=== PATIENT | female | born 1945 | race Caucasian/White ===

== ENCOUNTER → 2017-04-13 13:54 | Outpatient (CLI) | payer MEDICARE, SELFPAY | PROVIDERS: Family Provider Family Medicine Geriatric Medicine; PCP Family Medicine Geriatric Medicine; Visit Provider Family Medicine Geriatric Medicine | DX: N39.0 Urinary tract infection, site not specified (principal) | CPT/HCPCS: 87086; 87088; 87186 ==

== ENCOUNTER → 2017-08-22 10:01 | Outpatient (CLI) | payer MEDICARE, SELFPAY ==
[2017-08-22 13:31] LABS: Absolute Lymphocyte Count 1.89 X10^3/ul (0.83-4.51); Absolute Neutrophil Count 3.7 X10^3/uL (2.0-7.7); Basophil# 0.01 X10^3/uL; Basophil% 0.2 % (0-1); Eosinophil# 0.08 X10^3/uL; Eosinophils% 1.3 % (0-5); Hematocrit 39.4 % (37-47); Hemoglobin 12.7 g/dl (12.0-15.0); Lymphocyte # 1.89 X10^3/ul (4.0); Lymphocyte % 31.3 % (19-41); Mean Corp Hgb Conc 32.2 g/gl (32-36); Mean Corpuscular Hgb 28.7 pg (27.0-32.0); Mean Corpuscular Volume 89.1 fL (81-99); Mean Platelet Vol. 9.9 fl (6.2-12.0); Monocyte% 6.6 % (0-10); Neutrophil # 3.66 X10^3/uL (2.7-7.7); Neutrophil % 60.6 % (47-70); Platelet Count 253 K/mm3 (150-450); RBC Distribution Width CV 13.9 % (11.6-14.6); RBC Distribution Width SD 44.5 fl (35.1-43.9); Red Blood Count 4.42 M/mm3 (4.2-5.4)
[2017-08-22 13:32] LABS: POSITIVE COUNT NO; POSITIVE DIFFERENTIAL NO; POSITIVE MORPHOLOGY NO
[2017-08-22 13:50] LABS: AST(SGOT) 20 U/L (15-37); Alanine Aminotransfer ALT/SGPT 21 U/L (13-56); Albumin, Serum 3.6 g/dL (3.2-5.0); Alkaline Phosphatase 129 U/L (45-117); Anion Gap 8 (5-15); BUN 10 mg/dL (7-18); BUN/Creat Ratio 13.2 RATIO (10-20); Calcium,Total 8.8 mg/dL (8.5-10.1); Chloride 104 mmol/L (98-107); Creatinine, Serum 0.76 mg/dL (0.55-1.02); EST Glomerular Filtration Rate 79 mL/min (>60); Est Glom Filt Rate - Afr Amer 96 mL/min (>60); Globulin 3.5 g/dL (2.2-4.2); Glucose 85 mg/dL (74-106); Potassium 4.2 mmol/L (3.5-5.1); Protein, Total 7.1 g/dL (6.4-8.2); Sodium Level 139 mmol/L (136-145); Thyroid Stim Hormone (TSH) 1.98 uIU/mL (0.358-3.74)
[2017-08-23 09:37] LABS: Vitamin D,25 Hydroxy 14.6 ng/mL (29.95-100.01)
== END ==
PROVIDERS: Family Provider Family Medicine Geriatric Medicine; PCP Family Medicine Geriatric Medicine; Visit Provider Family Medicine Geriatric Medicine
DX: E55.9 Vitamin D deficiency, unspecified (principal); R53.83 Other fatigue
CPT/HCPCS: 36415; 80053; 82306; 84443; 85025

== ENCOUNTER → 2018-03-15 11:02 | Outpatient (CLI) | payer MEDICARE, SELFPAY | PROVIDERS: Family Provider Family Medicine Geriatric Medicine; PCP Family Medicine Geriatric Medicine; Visit Provider Family Medicine Geriatric Medicine | DX: N39.0 Urinary tract infection, site not specified (principal) | CPT/HCPCS: 87086; 87088; 87186 ==

== ENCOUNTER → 2018-05-07 15:55 | Outpatient (CLI) | payer MEDICARE, SELFPAY ==
--- NOTE | 2018-05-07 16:05 | RAD_ITS ---
STUDY: X-RAY - LUMBAR SPINE REASON FOR EXAM: Female, 72 years old. lower back and knee pain TECHNIQUE: 3 view(s) of the lumbar spine were obtained. COMPARISON: None FINDINGS: Normal lumbar lordosis. There is no substantial scoliosis. There is a normal alignment of the vertebrae. There is diffuse demineralization with multi-level endplate spondylosis. Normal disc space heights. There is atherosclerotic calcification of the abdominal aorta without a demonstrated aneurysm. RAD/Lumbar Spine 2 or 3 Views IMPRESSION: Degenerative changes of the spine, as detailed above. Electronically Signed: Robert Avelar, at 13:21 EDT Tel , Service support ,
--- NOTE | 2018-05-07 16:10 | RAD_ITS ---
STUDY: X-RAY - RIGHT KNEE REASON FOR EXAM: Female, 72 years old. Knee pain TECHNIQUE: 4 view(s) of the knee. COMPARISON: None. FINDINGS: Normal visualized distal femur. Normal visualized proximal tibia and fibula. Normal proximal tibiofibular articulation. Normal medial femorotibial compartment. Normal lateral femorotibial compartment. Normal patellofemoral articulation. There is a moderate volume joint effusion. The soft tissue structures are unremarkable. RAD/Knee 4 or More Views IMPRESSION: Effusion, as described above. Electronically Signed: Robert Avelar, at 12:41 EDT Tel , Service support ,
== END ==
PROVIDERS: Family Provider Family Medicine Geriatric Medicine; PCP Family Medicine Geriatric Medicine; Referring Provider Family Medicine Geriatric Medicine; Visit Provider Family Medicine Geriatric Medicine
DX: M54.5 Low back pain (principal); M25.569 Pain in unspecified knee
CPT/HCPCS: 72100; 73564

== ENCOUNTER → 2018-06-15 | Outpatient (CLI) | payer MEDICARE, SELFPAY ==
[2018-05-30 14:00] VITALS: BMI 25.0
--- NOTE | 2018-06-15 12:22 | MRI_ITS ---
STUDY: MRI RIGHT KNEE REASON FOR EXAM: Female, 72 years old. Knee pain TECHNIQUE: Standardized fat and water weighted pulse sequences were obtained in all 3 orthogonal planes. COMPARISON: None. FINDINGS: There is irregularity of the posterior horn of the medial meniscus which extends to the articular surfaces. There is low signal abnormality possible meniscal fragment adjacent to the posterior horn, lateral to the posterior horn. There is mild flattening with mild increased signal within the anterior horn likely degenerative. There is medial joint space compartmental narrowing. There are articular and osteochondral defects within the medial femoral condyle. There are reticular defects within the medial tibial plateau. There is marrow edema with decreased T1 and increased T2 signal within the medial femoral condyle and medial tibial plateau. Normal medial collateral ligamentous complex (MCL). Normal distal semimembranosus, gracilis and semitendinosus tendons. There is irregularity, deformity with abnormal signal extending to the articular surface involving the posterior horn lateral meniscus. There is mild flattening with increased signal anterior horn lateral meniscus. There are smaller articular and osteochondral defects, subchondral geode within the lateral tibial plateau near the intercondylar notch adjacent to the attachment of the anterior cruciate ligament. There is Mild edema with increased T2 signal within the lateral tibial plateau. Normal proximal tibiofibular articulation. Normal lateral collateral (fibular) ligament. Normal popliteus tendon. Normal biceps femoris tendon. Normal anterior cruciate ligament (ACL). Normal posterior cruciate ligament (PCL). Normal congruent patellofemoral articulation. There is interventricular defect involving the lateral facet. There is also mild subchondral marrow edema with increased T2 signal.. Normal medial and lateral patellar retinaculum. Normal quadriceps tendon. Normal patellar tendon. Normal Hoffa's fat pad. There is a large fluid collection posterior medial to the knee measured 7 cm in superior-inferior diameter by 1 cm in AP diameter by 2.7 cm in mediolateral diameter. The fluid collection dissects into the upper calf. There is mild prepatellar subcutaneous edema MRI/Lower Ext Joint Only (Routine) IMPRESSION: Significant osteoarthrosis medial compartment knee with joint space narrowing articular and osteochondral defects medial femoral condyle . There is also articular defects within the medial tibial plateau. 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
== END | disposition home or self-care (01) ==
LOC: MRI 12:21
PROVIDERS: Family Provider Family Medicine Geriatric Medicine; PCP Family Medicine Geriatric Medicine; Referring Provider Orthopaedic Surgery; Visit Provider Orthopaedic Surgery
DX: M25.561 Pain in right knee (principal)
CPT/HCPCS: 73721

== ENCOUNTER → 2018-06-26 | Outpatient (CLI) | payer MEDICARE, SELFPAY ==
[2018-06-20 08:06] VITALS: BMI 25.0
--- NOTE | 2018-06-26 16:28 | RAD_ITS ---
STUDY: X-RAY CHEST REASON FOR EXAM: Female, 72 years old. Cough TECHNIQUE: PA and lateral chest COMPARISON: 11/10/2016. FINDINGS: Moderate sliding hiatal hernia. Containing a portion of the gastric fundus. The lungs are clear and expanded. Normal cardiomediastinal silhouette, chandrika and pleural margins. No acute osseous or upper abdominal process. Multilevel cervical spondylosis. Mild thoracolumbar scoliosis and spondylosis. RAD/Chest PA and Lateral IMPRESSION: No acute cardiopulmonary process. Sliding hiatal hernia. Electronically Signed: Jose Dave MD at 10:58 EDT Tel , Service support ,
== END | disposition home or self-care (01) ==
LOC: RAD 16:22
PROVIDERS: Family Provider Family Medicine Geriatric Medicine; PCP Family Medicine Geriatric Medicine; Referring Provider Family Medicine Geriatric Medicine; Visit Provider Family Medicine Geriatric Medicine
DX: J41.0 Simple chronic bronchitis (principal)
CPT/HCPCS: 71046

== ENCOUNTER 2018-07-17 06:45 | Day surgery (SDC) | payer MEDICARE, SELFPAY ==
--- NOTE | 2018-06-20 03:45 | HP_ITS ---
Intake Vital Signs 06/20/18 Body Mass Index (BMI) 25.0 Intake Visit Reasons: right knee Is patient in pain?: Yes Pain scale (1-10): 4 Allergies No Known Allergies Allergy (Verified 05/19/15 11:19) Medications Citalopram [Celexa] 40 mg PO DAILY 05/19/15 [History Confirmed 05/19/15] PFSH Social History Smoking Status: Former smoker HPI right knee: Surgical H&P: Yes Details: Parts of this documentation were recorded by a scribe, this documentation accurately reflects the service provided and the decisions made by me, Edmundo Meyer, 06/20/18 0806. AJITH BERRIOS is a 72 year old F here today for right knee MRI f/u. She has been ill with pneumonia for almost 3 weeks so she has been resting and the knee pain resolved a little. She still complains of pain increasing with prolonged walking or in one position for too long. She has good rom today and mild swelling that is fairly consistent. Denies numbness, tingling or other associated symptoms. She uses otc nsaids prn. She has completed her antibiotics and her cough is less productive. Ortho Exam Right Knee Skin/Wound: No erythema, No ecchymosis, Yes swelling Homans Sign: No 1+: Effusion Knee ROM: Yes ROM-Extension -20 to 0, Yes ROM-Flexion 0-140 Examination: Yes Med jt line tenderness, Yes Pain with flexion, Yes Eri's Test Stability: NML: Anterior Drawer, NML: Posterior Drawer, NML: Valgus 30, NML: Varus 30 Supplemental Info 06/15/2018 MRI right knee: Complex tear posterior horn medial meniscus arthrosis present medial and patellofemoral compartments degeneration versus tear anterior and possible posterior horn lateral menisci Assessment & Plan Problems 1. Primary osteoarthritis of right knee M17.11 2. Acute medial meniscus tear of right knee, subsequent encounter S83.817D 3. Internal derangement of right knee involving posterior horn of lateral meniscus M23.351 Plan Personally reviewed MRI and explained that she has tear of the posterior medial meniscus and small posterior lateral meniscus with medial and PF Osteoarthritis more significant in PF. Her treatment options are do nothing, a knee arthroscopy for debridement and explained that due to the OA her recovery from the arthroscopy. If the scope fails and her pain continues or increases can discuss a TKA. Due to her recent pneumonia discussed prolonging surgery for another month. Reviewed the pre-operative plans with the patient. Risks and benefits of the procedure were fully explained, including but not limited to infection, neurovascular injury, continued pain, arthritis, stiffness, need for further surgery, re-injury, DVT, PE, general risks of anesthesia, and loss of limb or life. The patient understands all the risks and does wish to proceed with written consent. Follow up two weeks post op or sooner if pain, swelling, numbness or associated symptoms, or concerns develop. All questions answered. Patient in agreement of plan. Coding Level of Care Code Off vis,est,level 3 Diagnoses Primary osteoarthritis of right knee M17.11 ??Osteoarthritis type: primary Acute medial meniscus tear of right knee, subsequent encounter S83.241D ??Encounter type: subsequent encounter Internal derangement of right knee involving posterior horn of lateral meniscus M23.351 06/20/18 1545 <Electronically signed by Edmundo Meyer DO> Date Edmundo Meyer DO
[2018-06-20 08:06] VITALS: BMI 25.0
[2018-07-17] VITALS (9 sets, daily range): BP systolic 114–169; BP diastolic 58–97; PULSE 65–83; RESP 14–16; TEMP 35.9–36.4; O2SAT 93–99; BMI 24.7
--- NOTE | 2018-07-17 08:00 | PCM.HP.BLA ---
History and Physical Date of Admission: 07/17/18 Intake Vital Signs 06/20/18 Body Mass Index (BMI) 25.0 Intake Visit Reasons: right knee Is patient in pain?: Yes Pain scale (1-10): 4 Allergies No Known Allergies Allergy (Verified 05/19/15 11:19) Medications Citalopram [Celexa] 40 mg PO DAILY 05/19/15 [History Confirmed 05/19/15] PFSH Social History Smoking Status: Former smoker HPI right knee: Surgical H&P: Yes Details: Parts of this documentation were recorded by a scribe, this documentation accurately reflects the service provided and the decisions made by me, Edmundo Meyer, 06/20/18 0806. AJITH BERRIOS is a 72 year old F here today for right knee MRI f/u. She has been ill with pneumonia for almost 3 weeks so she has been resting and the knee pain resolved a little. She still complains of pain increasing with prolonged walking or in one position for too long. She has good rom today and mild swelling that is fairly consistent. Denies numbness, tingling or other associated symptoms. She uses otc nsaids prn. She has completed her antibiotics and her cough is less productive. Ortho Exam Right Knee Skin/Wound: No erythema, No ecchymosis, Yes swelling Homans Sign: No 1+: Effusion Knee ROM: Yes ROM-Extension -20 to 0, Yes ROM-Flexion 0-140 Examination: Yes Med jt line tenderness, Yes Pain with flexion, Yes Eri's Test Stability: NML: Anterior Drawer, NML: Posterior Drawer, NML: Valgus 30, NML: Varus 30 Supplemental Info 06/15/2018 MRI right knee: Complex tear posterior horn medial meniscus arthrosis present medial and patellofemoral compartments degeneration versus tear anterior and possible posterior horn lateral menisci Assessment & Plan Problems 1. Primary osteoarthritis of right knee M17.11 2. Acute medial meniscus tear of right knee, subsequent encounter S83.775D 3. Internal derangement of right knee involving posterior horn of lateral meniscus M23.351 Plan Personally reviewed MRI and explained that she has tear of the posterior medial meniscus and small posterior lateral meniscus with medial and PF Osteoarthritis more significant in PF. Her treatment options are do nothing, a knee arthroscopy for debridement and explained that due to the OA her recovery from the arthroscopy. If the scope fails and her pain continues or increases can discuss a TKA. Due to her recent pneumonia discussed prolonging surgery for another month. Reviewed the pre-operative plans with the patient. Risks and benefits of the procedure were fully explained, including but not limited to infection, neurovascular injury, continued pain, arthritis, stiffness, need for further surgery, re-injury, DVT, PE, general risks of anesthesia, and loss of limb or life. The patient understands all the risks and does wish to proceed with written consent. Follow up two weeks post op or sooner if pain, swelling, numbness or associated symptoms, or concerns develop. All questions answered. Patient in agreement of plan. Coding Level of Care Code Off vis,est,level 3 Diagnoses Primary osteoarthritis of right knee M17.11 ??Osteoarthritis type: primary Acute medial meniscus tear of right knee, subsequent encounter S83.241D ??Encounter type: subsequent encounter Internal derangement of right knee involving posterior horn of lateral meniscus M23.351 06/20/18 2765 <Electronically signed by Edmundo Meyer DO> Date Edmundo Meyer DO I have re-examined the patient. There are no clinical changes since date of exam
[2018-07-17] MEDS: Cefazolin 2 GM in 0.9% Normal Saline 100 ML IV (08:49)
[2018-07-17] MEDS: Epinephrine (1 mg/ml) 1 MG/ML VIAL (09:13)
[2018-07-17] MEDS: Bupiv/Epi 0.5% Mpf 30 ML Vial (09:13)
[2018-07-17] MEDS: Bupivacaine 0.5% PF 10 ML VIAL (09:35)
[2018-07-17] MEDS: MethylPREDNISolone Acetate 80 MG/ML Vial (09:35)
[2018-07-17] MEDS: Morphine 4 MG/ML Syringe (09:35)
--- NOTE | 2018-07-17 09:57 | DCINST_ITS ---
Additional Instructions: Ice and elevate next 72 hours .keep dressing on clean and dry for 48 hours then may remove begin showering daily but do not submerge in tub or pool. After shower may apply Band-Aids . Encourage knee range of motion weightbearing as tolerated, use crutches until confident in knee then may discontinue. No strenuous activity. When not ambulating keep iced and elevated next 72 hours Allergies/Adverse Reactions: Allergies No Known Allergies Allergy (Verified 07/10/18 09:48) Medications to take at Discharge Citalopram [Celexa] 40 mg PO DAILY 05/19/15 Ergocalciferol [Vitamin D] 50,000 unit PO Q7D 07/10/18 Hydrocodone Bitart/Apap 5-325 [Sterling 5MG-325MG] 1 - 2 tablet PO Q4H PRN PRN 5 Days #30 tablet 07/17/18 The following prescriptions were given: Hydrocodone Bitart/Apap 5-325 [Sterling 5MG-325MG] 1 - 2 tablet PO Q4H PRN PRN 5 Days #30 tablet PRN Reason: Pain Primary Care Physician: David Winters Chi, MD [Primary Care Provider] - Test Results: Test results from this visit will be discussed in further detail at your follow- up appointment, if applicable. Please Follow Up With: Edmundo Meyer DO - 2 wk
--- NOTE | 2018-07-17 10:01 | OP.PCM_ITS ---
Report of Operation Date of Procedure: 07/17/18 Description of Surgical Findings:: Preop diagnosis:right knee medial and lateral meniscal tear, djd Postoperative diagnosis: right knee grade III medial lateral and patellofemoral compartment chondromalacia, complex tearing medial and lateral meniscus. Procedure: Left knee arthroscopic partial medial and lateral menisectomy, tricompartmental chondroplasty Anesthesia: General Estimated blood loss: 7 mL Tourniquet time: 24 minutes 300 mmHg Complications: none Indication for procedure: This is a 73-year-old female patient with mechanical knee pain MRI evidence of DJD and medial and lateral meniscal tears the patient did wish to proceed with an elective arthroscopic surgery to attempt to alleviate the symptoms. Risk benefits and alternatives of the procedure were reviewed including risk of bleeding infection nerve artery tissue damage need for further surgery continued pain and expected postoperative course. Procedure: The patient was met in the preoperative holding area. The operative extremity was identified by both patient and physician and family and marked. Patient was brought back to the operating room on a wheeled cart and transferred to the operating table in the supine position. Anesthesia was started. A well- padded tourniquet was placed on the operative extremity. A lower extremity leg gamez was secured to the operative extremity. The contralateral extremity was well-padded and the end of the bed was flexed to 90 degrees. The patient was prepped and draped in the usual sterile fashion. A timeout was called to ensure the proper patient, procedure, and extremity were being contemplated. 0.5% Marcaine with epinephrine was injected into the planned incisional areas under the skin only. An Esmarch was used to exsanguinate the extremity and the tourniquet was inflated. An 11 blade scalpel was used to make a stab incision i n the anterior lateral portal. The arthroscope was inserted into the intercondylar notch and inflow and outflow tubes were attached. Arthroscopic visualization began. The medial compartment was entered. An 18-gauge spinal needle was used to establish the placement for anterior medial portal. An 11 blade scalpel was used to make a stab incision. Blunt probe was inserted followed by a meniscal probe. Complex tearing of the posterior horn and body medial meniscus the use of arthroscopic biting instruments and corby partial medial meniscectomy was performed. There was noted to be grade III chondromalacia of the medial and lateral femoral condyles and chondroplasty was performed the ACL was found to be intact. The lateral compartment was entered complex tearing posterior body lateral meniscus with the use of arthroscopic biting instruments and corby and ArthroCare wand a partial lateral meniscectomy was performed. The arthroscope was switched to the medial portal to complete the procedure. The medial and lateral gutters were inspected and were free of loose bodies. The patellofemoral joint was inspected grade III chondromalacia. There was good patellar tracking. The knee was thoroughly irrigated and drained. An intra-articular injection with 5 cc 0.5% Marcaine plain 4 mg of morphine and 40 mg of Depo-Medrol was injected intra-articularly. The arthroscope was removed the portals were closed with 3-0 nylon arthroscopic stitches. Followed by Xeroform 4 x 4's ABDs web roll and an Rodrigo wrap. The tourniquet was let down and the drapes were removed. All counts were correct. The patient was brought back to the PACU in stable condition.
== END 2018-07-17 12:04 | disposition home or self-care (01) ==
LOC: SDC 06:46 → AC 06:47
PROVIDERS: Family Provider Family Medicine Geriatric Medicine; PCP Family Medicine Geriatric Medicine; Referring Provider Orthopaedic Surgery; Visit Provider Orthopaedic Surgery
PROC: (CPT 29870; principal; 2018-07-17 08:30)
DX: S83.241A Other tear of medial meniscus, current injury, right knee, initial encounter (principal); S83.281A Other tear of lateral meniscus, current injury, right knee, initial encounter; X58.XXXA Exposure to other specified factors, initial encounter; Y93.9 Activity, unspecified; Y92.9 Unspecified place or not applicable; F41.9 Anxiety disorder, unspecified; F32.9 Major depressive disorder, single episode, unspecified; Z79.899 Other long term (current) drug therapy; Z87.891 Personal history of nicotine dependence; M17.11 Unilateral primary osteoarthritis, right knee
CPT/HCPCS: 01400; 29880; J7120; J2405

== ENCOUNTER → 2018-08-27 | Outpatient (CLI) | payer MEDICARE, SELFPAY ==
[2018-07-17 07:26] VITALS: BMI 24.7
[2018-08-27 12:24] LABS: Absolute Neutrophil Count 4.2 X10^3/uL (2.0-7.7); Basophil# 0.01 X10^3/uL; Basophil% 0.2 % (0-1); Eosinophil# 0.06 X10^3/uL; Eosinophils% 0.9 % (0-5); Hematocrit 40.2 % (37-47); Hemoglobin 12.8 g/dl (12.0-15.0); Lymphocyte % 27.4 % (19-41); Mean Corp Hgb Conc 31.8 g/gl (32-36); Mean Corpuscular Hgb 28.3 pg (27.0-32.0); Mean Corpuscular Volume 88.7 fL (81-99); Mean Platelet Vol. 9.4 fl (6.2-12.0); Monocyte# 0.51 X10^3/uL; Monocyte% 7.8 % (0-10); Neutrophil # 4.17 X10^3/uL (2.7-7.7); Neutrophil % 63.5 % (47-70); Platelet Count 274 K/mm3 (150-450); RBC Distribution Width CV 14.9 % (11.6-14.6); RBC Distribution Width SD 48.3 fl (35.1-43.9); Red Blood Count 4.53 M/mm3 (4.2-5.4); White Blood Count 6.6 K/mm3 (4.4-11.0)
[2018-08-27 12:34] LABS: POSITIVE COUNT NO; POSITIVE DIFFERENTIAL NO; POSITIVE MORPHOLOGY NO
[2018-08-27 12:47] LABS: Vitamin D,25 Hydroxy 36.8 ng/mL (29.95-100.01)
[2018-08-27 12:54] LABS: ALB/GLOB Ratio 1.1 RATIO (0.9-2.4); AST(SGOT) 16 U/L (15-37); Alanine Aminotransfer ALT/SGPT 22 U/L (13-56); Albumin, Serum 3.5 g/dL (3.2-5.0); Alkaline Phosphatase 106 U/L (45-117); Anion Gap 6 (5-15); BUN 14 mg/dL (7-18); BUN/Creat Ratio 16.6 RATIO (10-20); Calcium,Total 8.7 mg/dL (8.5-10.1); Chloride 107 mmol/L (98-107); Creatinine, Serum 0.84 mg/dL (0.55-1.02); EST Glomerular Filtration Rate 70 mL/min (>60); Est Glom Filt Rate - Afr Amer 85 mL/min (>60); Globulin 3.3 g/dL (2.2-4.2); Glucose 111 mg/dL (74-106); Potassium 4.2 mmol/L (3.5-5.1); Protein, Total 6.8 g/dL (6.4-8.2); Sodium Level 140 mmol/L (136-145); Thyroid Stim Hormone (TSH) 1.72 uIU/mL (0.358-3.74)
== END | disposition home or self-care (01) ==
LOC: POLAB3 11:34
PROVIDERS: Family Provider Family Medicine Geriatric Medicine; PCP Family Medicine Geriatric Medicine; Visit Provider Family Medicine Geriatric Medicine
DX: R53.83 Other fatigue (principal); E55.9 Vitamin D deficiency, unspecified
CPT/HCPCS: 36415; 80053; 82306; 84443; 85025

== ENCOUNTER → 2018-12-06 15:49 | Outpatient (CLI) | payer MEDICARE, SELFPAY ==
[2018-08-27 12:57] VITALS: BMI 24.7
== END ==
PROVIDERS: Family Provider Family Medicine Geriatric Medicine; PCP Family Medicine Geriatric Medicine; Referring Provider Family Medicine Geriatric Medicine; Visit Provider Family Medicine Geriatric Medicine
DX: R50.9 Fever, unspecified (principal)
CPT/HCPCS: 87633

== ENCOUNTER → 2019-08-29 10:49 | Outpatient (CLI) | payer MEDICARE, SELFPAY ==
[2018-08-27 12:57] VITALS: BMI 24.7
[2019-08-29 12:03] LABS: Absolute Lymphocyte Count 1.48 X10^3/uL (0.83-4.51); Absolute Neutrophil Count 2.5 X10^3/uL (2.0-7.7); Basophil# 0.01 X10^3/uL; Basophil% 0.2 % (0-1); Eosinophil# 0.08 X10^3/uL; Eosinophils% 1.8 % (0-5); Hematocrit 36.8 % (37-47); Hemoglobin 11.3 g/dL (12.0-15.0); Lymphocyte # 1.48 X10^3/ul (4.0); Mean Corp Hgb Conc 30.7 g/dL (32-36); Mean Corpuscular Volume 87.8 fL (81-99); Mean Platelet Vol. 9.3 fl (6.2-12.0); Monocyte# 0.45 X10^3/uL; NRBC Flagged by Analyzer 0 % (0-5); Neutrophil # 2.45 X10^3/uL (2.7-7.7); Neutrophil % 54.6 % (47-70); Platelet Count 240 K/mm3 (150-450); RBC Distribution Width CV 14.4 % (11.6-14.6); RBC Distribution Width SD 46.2 fl (35.1-43.9); Red Blood Count 4.19 M/mm3 (4.2-5.4); White Blood Count 4.5 K/mm3 (4.4-11.0)
[2019-08-29 12:24] LABS: AST(SGOT) 15 U/L (15-37); Alanine Aminotransfer ALT/SGPT 17 U/L (13-56); Albumin, Serum 3.3 g/dL (3.2-5.0); Alkaline Phosphatase 134 U/L (45-117); Anion Gap 5 (5-15); BUN 10 mg/dL (7-18); BUN/Creat Ratio 13.6 RATIO (10-20); Calcium,Total 8.7 mg/dL (8.5-10.1); Chloride 106 mmol/L (98-107); Creatinine, Serum 0.73 mg/dL (0.55-1.02); EST Glomerular Filtration Rate 82 mL/min (>60); Est Glom Filt Rate - Afr Amer 99 mL/min (>60); Globulin 3.3 g/dL (2.2-4.2); Glucose 93 mg/dL (74-106); Potassium 4.2 mmol/L (3.5-5.1); Protein, Total 6.6 g/dL (6.4-8.2); Sodium Level 140 mmol/L (136-145); Thyroid Stim Hormone (TSH) 1.62 uIU/mL (0.358-3.74)
[2019-08-29 12:54] LABS: Vitamin D,25 Hydroxy 52.6 ng/mL
== END ==
PROVIDERS: PCP Family Medicine Geriatric Medicine; Visit Provider Family Medicine Geriatric Medicine
DX: E55.9 Vitamin D deficiency, unspecified (principal); R53.83 Other fatigue
CPT/HCPCS: 36415; 80053; 82306; 84443; 85025

== ENCOUNTER 2020-05-15 13:56 | Outpatient (RCR) | payer MEDICARE, SELFPAY ==
[2018-08-27 12:57] VITALS: BMI 24.7
== END 2020-07-28 23:59 ==
LOC: IMMUN 13:56
PROVIDERS: PCP Family Medicine Geriatric Medicine; Visit Provider Family Medicine
DX: Z23 Encounter for immunization (principal)
CPT/HCPCS: 0001A; 0002A; 91300

== ENCOUNTER → 2020-06-10 11:48 | Outpatient (CLI) | payer MEDICARE, SELFPAY ==
[2018-08-27 12:57] VITALS: BMI 24.7
[2020-06-10 12:04] LABS: Absolute Lymphocyte Count 2.45 X10^3/uL (0.83-4.51); Absolute Neutrophil Count 3.5 X10^3/uL (2.0-7.7); Basophil# 0.03 X10^3/uL; Basophil% 0.4 % (0-1); Eosinophil# 0.19 X10^3/uL; Eosinophils% 2.8 % (0-5); Hematocrit 37.5 % (37-47); Hemoglobin 11.4 g/dL (12.0-15.0); Lymphocyte # 2.45 X10^3/ul (0.83-4.51); Lymphocyte % 36.2 % (19-41); Mean Corp Hgb Conc 30.4 g/dL (32-36); Mean Corpuscular Hgb 25.3 pg (27.0-32.0); Mean Corpuscular Volume 83.1 fL (81-99); Mean Platelet Vol. 8.6 fl (6.2-12.0); Monocyte# 0.59 X10^3/uL; Monocyte% 8.7 % (0-10); NRBC Flagged by Analyzer 0 % (0-5); Neutrophil # 3.49 X10^3/uL (2.7-7.7); Neutrophil % 51.8 % (47-70); Platelet Count 276 K/mm3 (150-450); RBC Distribution Width SD 45.4 fl (35.1-43.9); Red Blood Count 4.51 M/mm3 (4.2-5.4); White Blood Count 6.8 K/mm3 (4.4-11.0)
[2020-06-10 12:57] LABS: AST(SGOT) 17 U/L (15-37); Alanine Aminotransfer ALT/SGPT 20 U/L (13-56); Albumin, Serum 3.6 g/dL (3.2-5.0); Alkaline Phosphatase 150 U/L (45-117); Anion Gap 4 (5-15); BUN 14 mg/dL (7-18); BUN/Creat Ratio 18.3 RATIO (10-20); Calcium,Total 8.8 mg/dL (8.5-10.1); Chloride 104 mmol/L (98-107); Creatinine, Serum 0.76 mg/dL (0.55-1.02); EST Glomerular Filtration Rate 78 mL/min (>60); Est Glom Filt Rate - Afr Amer 94 mL/min (>60); Globulin 3.7 g/dL (2.2-4.2); Glucose 93 mg/dL (74-106); Protein, Total 7.3 g/dL (6.4-8.2); Sodium Level 138 mmol/L (136-145); Thyroid Stim Hormone (TSH) 2.36 uIU/mL (0.358-3.74)
--- NOTE | 2020-06-10 14:00 | RAD_ITS ---
STUDY: X-RAY CHEST REASON FOR EXAM: Female, 74 years old. [place] TECHNIQUE: Frontal and lateral views COMPARISON: 06/26/2018. FINDINGS: The lungs are clear and expanded. There is no demonstrated pleural abnormality. Normal size heart. Normal mediastinum and chandrika. Normal visualized pulmonary arteries. Normal visualized aortic arch and descending thoracic aorta. Normal visualized thoracic spine. Normal visualized ribs, clavicles, and shoulders. Hiatal hernia. RAD/Chest PA and Lateral IMPRESSION: No acute pulmonary pathology. Small hiatal hernia. Electronically Signed: Jose Samuel DO at 20:09 EDT Tel [phone], Service support ,
== END ==
PROVIDERS: PCP Family Medicine Geriatric Medicine; Referring Provider Family Medicine Geriatric Medicine; Visit Provider Family Medicine Geriatric Medicine
DX: R06.09 Other forms of dyspnea (principal); R53.83 Other fatigue
CPT/HCPCS: 36415; 71046; 80053; 84443; 85025

== ENCOUNTER → 2020-06-12 16:08 | Outpatient (CLI) | payer MEDICARE, SELFPAY ==
[2018-08-27 12:57] VITALS: BMI 24.7
== END ==
PROVIDERS: PCP Family Medicine Geriatric Medicine; Referring Provider Family Medicine Geriatric Medicine; Visit Provider Family Medicine Geriatric Medicine
DX: R06.89 Other abnormalities of breathing (principal)
CPT/HCPCS: 87635; C9803; U0002

== ENCOUNTER → 2020-08-04 12:40 | Outpatient (CLI) | payer MEDICARE, SELFPAY ==
[2020-07-29 13:48] VITALS: BMI 25.9
--- NOTE | 2020-08-04 12:47 | ECHOD_ITS ---
Version 2 Reason For Study: CHEST PAIN, ARRHYTHMIA Procedure This was a 2D Doppler, Color Flow transthoracic echocardiogram. Exam performed in department. Left Ventricle Normal LV size. Left ventricular systolic function is normal. The estimated ejection fraction is 60 %. Stage 1 diastolic dysfunction. No regional wall motion abnormalities noted. Right Ventricle Normal RV size. Normal systolic function. Atria Normal left atrium. Normal right atrium. Mitral Valve Normal mitral valve. Mild (1+) eccentric mitral valve insufficiency. Tricuspid Valve Normal tricuspid valve. Mild tricuspid valve insufficiency. Aortic Valve Trisinus/trileaflet aortic valve. Pulmonic Valve Normal pulmonic valve. Great Vessels Normal aortic root. Pericardium/Pleural No pericardial effusion. MMode/2D Measurements & Calculations LVIDd: 3.8 cm IVSd: 1.1 cm Ao root diam: 3.1 cm LVIDs: 2.5 cm LVPWd: 1.0 cm RVDd: 2.7 cm FS: 34.4 % LAV(MOD-bp): 54.1 ml LA A4 area: 16.9 cm2 LA dimension(2D): 3.3 cm LAV(MOD-bp) Indexed: 30.1 ml/m2 LAV(MOD-sp2): 47.1 ml LAV(MOD-sp4): 50.2 ml RA A4 area: 9.1 cm2 Time Measurements MV dec time: 0.16 sec Doppler Measurements & Calculations MV E max ezequiel: 64.6 cm/sec Lat Peak E' Ezequiel: 9.8 cm/sec Med Peak E' Ezequiel: 4.4 cm/sec MV A max ezequiel: 93.9 cm/sec E/E' lat: 6.6 E/E' med: 14.7 MV E/A: 0.69 Ao V2 max: 148.7 cm/sec LV V1 max: 119.8 cm/sec PA V2 max: 102.5 cm/sec Ao max P.8 mmHg LV V1 max P.7 mmHg TR max ezequiel: 236.5 cm/sec TR max P.4 mmHg ECHO/Echo Complete Interpretation Summary Normal LV size. Left ventricular systolic function is normal. The estimated ejection fraction is 60 %. Stage 1 diastolic dysfunction. Ordering Physician: Rainer Waggoner Referring Physician: David Winters Chi Performed By: Rashida Geronimo RDCS, RVT
== END ==
PROVIDERS: PCP Family Medicine Geriatric Medicine; Referring Provider Internal Medicine Cardiovascular Disease; Visit Provider Internal Medicine Cardiovascular Disease
DX: R07.9 Chest pain, unspecified (principal); R53.83 Other fatigue; R00.0 Tachycardia, unspecified
CPT/HCPCS: 93225; 93226; 93306

== ENCOUNTER → 2020-08-31 11:19 | Outpatient (CLI) | payer MEDICARE, SELFPAY ==
[2020-07-29 13:48] VITALS: BMI 25.9
[2020-08-31 12:15] LABS: Absolute Lymphocyte Count 2.16 X10^3/uL (0.83-4.51); Absolute Neutrophil Count 3.8 X10^3/uL (2.0-7.7); Basophil# 0.02 X10^3/uL; Basophil% 0.3 % (0-1); Eosinophil# 0.12 X10^3/uL; Eosinophils% 1.8 % (0-5); Lymphocyte # 2.16 X10^3/ul (0.83-4.51); Lymphocyte % 32.8 % (19-41); Mean Corp Hgb Conc 30.6 g/dL (32-36); Mean Corpuscular Volume 81.8 fL (81-99); Mean Platelet Vol. 9.1 fl (6.2-12.0); Monocyte# 0.49 X10^3/uL; Monocyte% 7.4 % (0-10); NRBC Flagged by Analyzer 0 % (0-5); Neutrophil # 3.78 X10^3/uL (2.7-7.7); Neutrophil % 57.4 % (47-70); Platelet Count 299 K/mm3 (150-450); RBC Distribution Width CV 15.7 % (11.6-14.6); RBC Distribution Width SD 46.5 fl (35.1-43.9); White Blood Count 6.6 K/mm3 (4.4-11.0)
[2020-08-31 12:36] LABS: AST(SGOT) 18 U/L (15-37); Alanine Aminotransfer ALT/SGPT 20 U/L (13-56); Albumin, Serum 3.5 g/dL (3.2-5.0); Alkaline Phosphatase 146 U/L (45-117); Anion Gap 7 (5-15); BUN 15 mg/dL (7-18); BUN/Creat Ratio 16.2 RATIO (10-20); Calcium,Total 8.8 mg/dL (8.5-10.1); Chloride 106 mmol/L (98-107); Creatinine, Serum 0.92 mg/dL (0.55-1.02); EST Glomerular Filtration Rate 63 mL/min (>60); Est Glom Filt Rate - Afr Amer 76 mL/min (>60); Globulin 3.6 g/dL (2.2-4.2); Glucose 143 mg/dL (74-106); Potassium 3.9 mmol/L (3.5-5.1); Protein, Total 7.1 g/dL (6.4-8.2); Sodium Level 140 mmol/L (136-145); Thyroid Stim Hormone (TSH) 2.83 uIU/mL (0.358-3.74)
[2020-08-31 15:41] LABS: Vitamin D,25 Hydroxy 33.5 ng/mL
[2020-08-31 17:30] LABS: Hemoglobin A1c 5.7 % (3.8-5.6)
== END ==
PROVIDERS: PCP Family Medicine Geriatric Medicine; Visit Provider Family Medicine Geriatric Medicine
DX: E55.9 Vitamin D deficiency, unspecified (principal); R53.83 Other fatigue; R79.9 Abnormal finding of blood chemistry, unspecified
CPT/HCPCS: 36415; 80053; 82306; 83036; 84443; 85025

== ENCOUNTER → 2020-12-15 15:57 | Outpatient (CLI) | payer MEDICARE, SELFPAY ==
[2020-12-15 17:12] LABS: Absolute Lymphocyte Count 1.88 X10^3/uL (0.83-4.51); Absolute Neutrophil Count 3.5 X10^3/uL (2.0-7.7); Basophil# 0.01 X10^3/uL; Basophil% 0.2 % (0-1); Eosinophil# 0.12 X10^3/uL; Hematocrit 33.3 % (37-47); Hemoglobin 10.1 g/dL (12.0-15.0); Lymphocyte # 1.88 X10^3/ul (0.83-4.51); Lymphocyte % 31.2 % (19-41); Mean Corp Hgb Conc 30.3 g/dL (32-36); Mean Corpuscular Hgb 24.6 pg (27.0-32.0); Mean Corpuscular Volume 81.2 fL (81-99); Mean Platelet Vol. 8.9 fl (6.2-12.0); Monocyte# 0.47 X10^3/uL; Monocyte% 7.8 % (0-10); NRBC Flagged by Analyzer 0 % (0-5); Neutrophil # 3.53 X10^3/uL (2.7-7.7); Neutrophil % 58.6 % (47-70); Platelet Count 263 K/mm3 (150-450); RBC Distribution Width CV 16.4 % (11.6-14.6); RBC Distribution Width SD 48.5 fl (35.1-43.9)
[2020-12-15 17:24] LABS: Anion Gap 6 (5-15); BUN 12 mg/dL (7-18); BUN/Creat Ratio 14.3 RATIO (10-20); Calcium,Total 8.9 mg/dL (8.5-10.1); Chloride 104 mmol/L (98-107); Creatinine, Serum 0.84 mg/dL (0.55-1.02); EST Glomerular Filtration Rate 70 mL/min (>60); Est Glom Filt Rate - Afr Amer 85 mL/min (>60); Glucose 99 mg/dL (74-106); Potassium 3.8 mmol/L (3.5-5.1); Sodium Level 138 mmol/L (136-145)
== END ==
PROVIDERS: PCP Family Medicine Geriatric Medicine; Visit Provider Family Medicine Geriatric Medicine
DX: R10.9 Unspecified abdominal pain (principal)
CPT/HCPCS: 36415; 80048; 85025

== ENCOUNTER → 2020-12-16 09:27 | Outpatient (CLI) | payer MEDICARE, SELFPAY ==
--- NOTE | 2020-12-16 09:30 | CT_ITS ---
STUDY: CT ABDOMEN AND PELVIS WITH CONTRAST REASON FOR EXAM: Female, 75 years old. 4 day history of mid abdominal pain and diarrhea. RADIATION DOSAGE (If Supplied By Facility): CTDIvol = ( 13.84 ) mGy, DLP = ( 764.38 ) mGycm TECHNIQUE: Transaxial images were obtained from the dome of the diaphragm to the symphysis pubis with oral contrast. Oral and amp; IV Readi-CAT and amp; 100mL Isovue-370 was administered. Sagittal and coronal images were reconstructed. Individualized dose optimization techniques were used for this CT. COMPARISON: Comparison is made with prior study dated 01/05/2015. FINDINGS: The visualized lung bases are unremarkable. The visualized portions of the heart are within normal limits. A linear filling defect is seen along the lateral aspect of the right lobe of the liver that extends from the dome down to its midportion. This may represent a diaphragmatic leafs. Normal gallbladder and extrahepatic biliary system. Normal spleen. Normal pancreas. Normal bilateral adrenal glands. Normal right kidney. Normal left kidney. There is a moderate-sized hiatal hernia. Normal small intestine. A filling defect is seen in the region of the proximal ascending colon just distal to the cecum. This may represent either impacted fecal material are a papillary lesion. The patient is status post appendectomy. There is diffuse atherosclerotic calcification of the abdominal aorta, without a demonstrated aneurysm. Normal inferior vena cava. Normal retroperitoneum. Normal urinary bladder. Normal abdominal wall. Normal osseous structures. CT/Abdomen/Pelvis WITH Contrast IMPRESSION: Filling defect in the region of the proximal ascending colon just distal to the cecum. As described. This may represent either impacted fecal material or a possible papillary abnormality. Correlation with colonoscopy is recommended. Electronically Signed: Eddie Guerra MD at 10:09 EDT , Service support ,
== END ==
PROVIDERS: PCP Family Medicine Geriatric Medicine; Referring Provider Family Medicine Geriatric Medicine; Visit Provider Family Medicine Geriatric Medicine
DX: R10.9 Unspecified abdominal pain (principal)
CPT/HCPCS: 74177; Q9967; A4216

== ENCOUNTER 2021-01-01 06:56 | Day surgery (SDC) | payer MEDICARE, SELFPAY ==
[2021-01-01] VITALS (11 sets, daily range): BP systolic 102–138; BP diastolic 46–79; PULSE 61–86; RESP 14–16; TEMP 36.1–36.9; O2SAT 94–100; BMI 25.7
[2021-01-01] MEDS: Lactated Ringers 1,000 ML 15 ML IV (07:31)
--- NOTE | 2021-01-01 08:17 | PCM.HP.BLA ---
History and Physical Date of Admission: 01/01/21 Intake Intake Visit Reasons: Abnormal CT Hiatal Hernia/C-Scope Allergies No Known Allergies Allergy (Verified 12/22/20 13:58) Medications celecoxib 100 mg capsule 100 mg PO BID 12/22/20 [History Confirmed 12/22/20] diphenhydramine 25 mg-acetaminophen 500 mg tablet 1 tab PO QHS PRN 12/22/20 [History Confirmed 12/22/20] omeprazole 40 mg capsule,delayed release 40 mg PO DAILY 12/22/20 [History Confirmed 12/22/20] sucralfate 1 gram tablet 1 g PO QACHS #30 tab 12/22/20 [Rx Confirmed 12/22/20] PFSH Medical History Anemia Black tarry stools Depression Hiatal hernia Osteoarthritis Surgical History H/O arthroscopic knee surgery (2018) History of total hip arthroplasty (2009) S/P appendectomy S/P cataract extraction S/P oophorectomy Family History Mother Myocardial infarction, Onset Age: 80 Brother Heart disease Sister CVA (cerebral vascular accident) Social History Smoking Status: Former smoker alcohol intake: current alcohol intake frequency: holidays/special occasions only HPI HPI HPI: AJITH BERRIOS, is a 75 F who presents to the office today for abnormal CT scan of the abdomen and pelvis as well as dark stools and abdominal pain. The patient reports that she had been having right upper quadrant pain and then she is having dark stools. She has never had an EGD and her last colonoscopy was over 15 years ago. Patient reports no abdominal pain currently. Patient also had a CT scan which showed some possible mass in the right colon. ROS General General: Yes fatigue; No weight change, appetite, colon cancer, breast cancer or weakness HEENT HEENT: Yes eye surgery; No difficulty swallowing, eye injury, swollen glands or hoarseness Endo Endocrine: No thyroid disease, diabetes mellitus, thyroid cancer, Hair loss, heat intolerance or cold intolerance Skin Skin: No rash or changing moles Breast Breast: No left breast lump, right breast lump, nipple discharge, breast pain, abnormal mammogram, abnormal US or breast enlargement Musc Musculoskeletal: Yes arthritis; No back problems, rheumatoid arthritis, gout or joint pain Cardio Cardiovascular: No murmur, pacemaker, heart disease, atrial fibrillation, high blood pressure, heart attack, heart stent, palpitations, shortness of breat with exertion or chest pain Psych Psychiatric: Yes anxiety; No depression or hearing voices Resp Respiratory: Yes shortness of breath, No sleep apnea, No cough, No COPD, No asthma, No emphysema and No wheezing Gastro Gastrointestinal: No abdominal pain, Yes nausea or vomiting, Yes diarrhea, No constipation, No blood in stool, Yes acid reflux, No hemorrhoids, No ulcers, No gallbladder problem and Yes black,tarry stools Regan Hematologic: No blood thinners, No blood disorders, No bleeding, Yes anemia and No blood clots Neuro Neurologic: No system reviewed and no additional complaints, except as documented, No as per HPI, No abnormal gait, No abnormal hearing, No abnormal movements, No abnormal speech, No behavioral changes, No burning sensations, No confusion, No convulsions, No disequilibrium, No dizziness, No localized weakness, No frequent falls, No headache(s), No lack of coordination, No loss of vision, No memory loss, No numbness, No other visual disturbances, No radicular pain, No restless legs, No sensory deficit, No syncope, No tingling, No tremor(s), No weakness and No other Exam Const General: cooperative Orientation: alert and oriented x3 HENMT Head: normal to inspection Neck Neck: normal visual inspection and full ROM Chest Chest palpation & inspection: normal inspection of the chest Resp Effort & Inspection: normal respiratory effort Auscultation: clear to auscultation bilaterally Cardio Rate: regular rate Rhythm: regular rhythm GI Inspection: non-distended Palpation: soft and nontender Skin General: no rashes or lesions noted Neuro General: patient alert and patient oriented x3 Extrem General: full ROM Psych Appearance: grossly normal Mental Status: mental status grossly normal Assessment and Plan Assessment and Plan (1) Black tarry stools: Status: Acute (2) Anemia: Status: Acute (3) Abnormal CT scan, colon: Status: Acute Orders: Orders: EGD Today K92.1, D64.9 Colonoscopy Today D64.9, R93.3 Plan - Dr. Abhijeet Arellano MD: Patient has anemia as well as black tarry stools and right upper quadrant pain so I believe the patient has a bleeding peptic ulcer. I have started her on a PPI and Carafate until I am able to scope her. I recommend EGD and colonoscopy as the patient also has an abnormal CT scan of the right colon. I explained endoscopy in detail to the patient. I explained the risks including but not limited to stroke or heart attack with anesthesia, perforation of the GI tract, bleeding, infection. I explained that any of these could necessitate further emergency surgery. The patient understands and all questions were answered sufficiently. The patient wishes to proceed with procedure. Abhijeet Arellano MD Pager: [facility] [address] [place] [address], [address] [place] [address] Office: I have re-examined the patient. There are no clinical changes since date of exam.
--- NOTE | 2021-01-01 09:03 | OP.EGD_ITS ---
Patient Name: Katrin Aguilar Procedure Date: 01/01/2021 8:24 AM Date of : 1945 Age: 75 Procedure: Upper GI endoscopy Indications: Abdominal pain in the right upper quadrant, Iron deficiency anemia Providers: Abhijeet Arellano MD Medicines: Monitored Anesthesia Care Patient Profile: This is a 75 year old female. Refer to note in patient chart for documentation of history and physical. Complications: No immediate complications. Procedure: Pre-Anesthesia Assessment: - Prior to the procedure, a History and Physical was performed, and patient medications and allergies were reviewed. The patient's tolerance of previous anesthesia was also reviewed. The risks and benefits of the procedure and the sedation options and risks were discussed with the patient. All questions were answered, and informed consent was obtained. Prior Anticoagulants: The patient has taken no previous anticoagulant or antiplatelet agents. After reviewing the risks and benefits, the patient was deemed in satisfactory condition to undergo the procedure. After obtaining informed consent, the endoscope was passed under direct vision. Throughout the procedure, the patient's blood pressure, pulse, and oxygen saturations were monitored continuously. The Endoscope was introduced through the mouth, and advanced to the second part of duodenum. The upper GI endoscopy was accomplished without difficulty. The patient tolerated the procedure well. Scope In: 8:33:30 AM Scope Out: 8:35:49 AM Total Procedure Duration Time 0 hours 2 minutes 19 seconds Findings: The esophagus was normal. The stomach was normal. The examined duodenum was normal. Impression: - Normal esophagus. - Normal stomach. - Normal examined duodenum. - No specimens collected. Recommendation: - Discharge patient to home. - Resume previous diet. - Continue present medications. Procedure Code(s): --- Professional --- 90470, Esophagogastroduodenoscopy, flexible, transoral; diagnostic, including collection of specimen(s) by brushing or washing, when performed (separate procedure) Diagnosis Code(s): --- Professional --- R10.11, Right upper quadrant pain D50.9, Iron deficiency anemia, unspecified CPT copyright 2017 [employer]. All rights reserved. The codes documented in this report are preliminary and upon him coder review may be revised to meet current compliance requirements. Abhijeet Arellano MD 01/01/2021 9:03:09 AM This report has been signed electronically. Number of Addenda: 0 Note Initiated On: 01/01/2021 8:24 AM
--- NOTE | 2021-01-01 09:04 | OP.CCLET_ITS ---
01/01/2021 David Winters MD [address] [place] [address] Re : Upper GI endoscopy procedure for Katrin Jeff Dear Dr. Winters This procedure was performed on Friday, January 01, 2021. My impressions and recommendations are as follows: Impressions : - Normal esophagus. - Normal stomach. - Normal examined duodenum. - No specimens collected. Recommendations : - Discharge patient to home. - Resume previous diet. - Continue present medications. My findings are described in the full procedure note, which is enclosed. If I can be of further assistance, please feel free to contact me at Doctor phone number(s): , Work: . Sincerely, Abhijeet Arellano MD 01/01/2021 9:03:09 AM This report has been signed electronically.
--- NOTE | 2021-01-01 09:08 | OP.CCLET_ITS ---
01/01/2021 David Winters MD [address] [place] [address] Re : Colonoscopy procedure for Katrin Aguilar Dear Dr. Winters This procedure was performed on Friday, January 01, 2021. My impressions and recommendations are as follows: Impressions : - The entire examined colon is normal. - No specimens collected. Recommendations : - Discharge patient to home. - Resume previous diet. - Continue present medications. - Repeat colonoscopy because the examination was incomplete. My findings are described in the full procedure note, which is enclosed. If I can be of further assistance, please feel free to contact me at Doctor phone number(s): , Work: . Sincerely, Abhijeet Arellano MD 01/01/2021 9:07:26 AM This report has been signed electronically.
--- NOTE | 2021-01-01 09:08 | OP.COLON_ITS ---
Patient Name: Katrin Aguilar Procedure Date: 01/01/2021 8:37 AM Date of : 1945 Age: 75 Procedure: Colonoscopy Indications: Abnormal CT of the GI tract Providers: Abhijeet Arellano MD Medicines: Monitored Anesthesia Care Patient Profile: This is a 75 year old female. Refer to note in patient chart for documentation of history and physical. Last Colonoscopy: more than 3 years ago. Complications: No immediate complications. Procedure: Pre-Anesthesia Assessment: - Prior to the procedure, a History and Physical was performed, and patient medications and allergies were reviewed. The patient's tolerance of previous anesthesia was also reviewed. The risks and benefits of the procedure and the sedation options and risks were discussed with the patient. All questions were answered, and informed consent was obtained. Prior Anticoagulants: The patient has taken no previous anticoagulant or antiplatelet agents. After reviewing the risks and benefits, the patient was deemed in satisfactory condition to undergo the procedure. After I obtained informed consent, the scope was passed under direct vision. Throughout the procedure, the patient's blood pressure, pulse, and oxygen saturations were monitored continuously. The pediatric colonoscope was introduced through the anus with the intention of advancing to the cecum. The scope was advanced to the sigmoid colon before the procedure was aborted. Medications were not given. The colonoscopy was unusually difficult due to a tortuous colon. The patient tolerated the procedure well. The quality of the bowel preparation was good. GI was contacted and they will attempt colonoscopy later today while patient is prepped. Scope In: 8:39:23 AM Scope Out: 8:49:56 AM Total Procedure Duration Time 0 hours 10 minutes 33 seconds Findings: The entire examined colon appeared normal. Impression: - The entire examined colon is normal. - No specimens collected. Recommendation: - Discharge patient to home. - Resume previous diet. - Continue present medications. - Repeat colonoscopy because the examination was incomplete. Procedure Code(s): --- Professional --- 31843, 53, Colonoscopy, flexible; diagnostic, including collection of specimen(s) by brushing or washing, when performed (separate procedure) Diagnosis Code(s): --- Professional --- R93.3, Abnormal findings on diagnostic imaging of other parts of digestive tract CPT copyright 2017 [employer]. All rights reserved. The codes documented in this report are preliminary and upon running specialist review may be revised to meet current compliance requirements. Abhijeet Arellano MD 01/01/2021 9:07:26 AM This report has been signed electronically. Number of Addenda: 0 Note Initiated On: 01/01/2021 8:37 AM
--- NOTE | 2021-01-01 13:05 | SUR.PREOP ---
Patient taken back to Endoscopy, out of pre-op at 1306 by Stephanie Bang RN.
--- NOTE | 2021-01-01 14:34 | OP.COLON_ITS ---
Patient Name: Katrin Aguilar Procedure Date: 01/01/2021 12:42 PM Date of : 1945 Age: 75 Procedure: Colonoscopy Indications: Abnormal CT of the GI tract Providers: Oren Walton DO, Abhijeet Arellano MD Medicines: See the Anesthesia note for documentation of the administered medications Patient Profile: This is a 75 year old female. Refer to note in patient chart for documentation of history and physical. Last Colonoscopy: more than 3 years ago. Complications: No immediate complications. Procedure: Pre-Anesthesia Assessment: - Prior to the procedure, a History and Physical was performed, and patient medications and allergies were reviewed. The patient's tolerance of previous anesthesia was also reviewed. The risks and benefits of the procedure and the sedation options and risks were discussed with the patient. All questions were answered, and informed consent was obtained. Prior Anticoagulants: The patient has taken no previous anticoagulant or antiplatelet agents. After reviewing the risks and benefits, the patient was deemed in satisfactory condition to undergo the procedure. - Prior to the procedure, a History and Physical was performed, and patient medications and allergies were reviewed. The patient is competent. The risks and benefits of the procedure and the sedation options and risks were discussed with the patient. All questions were answered and informed consent was obtained. Patient identification and proposed procedure were verified by the physician in the pre-procedure area. Mental Status Examination: alert and oriented. Airway Examination: normal oropharyngeal airway and neck mobility. Respiratory Examination: clear to auscultation. CV Examination: normal. Prophylactic Antibiotics: The patient does not require prophylactic antibiotics. Prior Anticoagulants: The patient has taken no previous anticoagulant or antiplatelet agents. ASA Grade Assessment: II - A patient with mild systemic disease. After reviewing the risks and benefits, the patient was deemed in satisfactory condition to undergo the procedure. The anesthesia plan was to use moderate sedation / analgesia (conscious sedation). Immediately prior to administration of medications, the patient was re-assessed for adequacy to receive sedatives. The heart rate, respiratory rate, oxygen saturations, blood pressure, adequacy of pulmonary ventilation, and response to care were monitored throughout the procedure. The physical status of the patient was re-assessed after the procedure. After I obtained informed consent, the scope was passed under direct vision. Throughout the procedure, the patient's blood pressure, pulse, and oxygen saturations were monitored continuously. The pediatric colonoscope was introduced through the anus and advanced to the terminal ileum, with identification of the appendiceal orifice and IC valve. The colonoscopy was somewhat difficult due to restricted mobility of the colon. The patient tolerated the procedure well. The quality of the bowel preparation was good. Moderate Sedation: Moderate (conscious) sedation was administered by the endoscopy nurse and supervised by the endoscopist. The patient's oxygen saturation, heart rate, blood pressure and response to care were monitored. Total physician intraservice time was 15 minutes. Scope In: 1:20:37 PM Scope Withdrawal Time 0 hours 6 minutes 46 seconds Scope Out: 1:50:20 PM Total Procedure Duration Time 0 hours 29 minutes 43 seconds Findings: The perianal and digital rectal examinations were normal. The entire examined colon appeared normal. The sigmoid colon was significantly tortuous. A few small and large-mouthed diverticula were found in the sigmoid colon and descending colon. Impression: - The entire examined colon is normal. - Tortuous colon. - Moderate diverticulosis in the sigmoid colon and in the descending colon. - No specimens collected. Recommendation: - Discharge patient to home. - Resume previous diet. - Continue present medications. - Repeat colonoscopy in 5 years for surveillance. - Return to GI office in 2 weeks. Procedure Code(s): --- Professional --- 17164, Colonoscopy, flexible; diagnostic, including collection of specimen(s) by brushing or washing, when performed (separate procedure) G0500, Moderate sedation services provided by the same physician or other qualified health healthcare marketer performing a gastrointestinal endoscopic service that sedation supports, requiring the presence of an independent trained observer to assist in the monitoring of the patient's level of consciousness and physiological status; initial 15 minutes of intra-service time; patient age 5 years or older (additional time may be reported with 68450, as appropriate) CPT copyright 2017 [employer]. All rights reserved. The codes documented in this report are preliminary and upon pbx inspector review may be revised to meet current compliance requirements. Oren Walton DO 01/01/2021 2:33:30 PM This report has been signed electronically. Abhijeet Arellano MD Number of Addenda: 1 Note Initiated On: 01/01/2021 12:42 PM Addendum Number: 1 Addendum Date: 10/22/2021 6:22:48 AM MAC was used instead of moderate sedation for this patient. Oren Walton DO 10/22/2021 6:22:52 AM This report has been signed electronically.
--- NOTE | 2021-01-01 14:35 | OP.CCLET_ITS ---
10/22/2021 David Winters MD [address] [place] [address] Re : Colonoscopy procedure for Katrin Aguilar Dear Dr. Winters This procedure was performed on Friday, January 01, 2021. My impressions and recommendations are as follows: Impressions : - The entire examined colon is normal. - Tortuous colon. - Moderate diverticulosis in the sigmoid colon and in the descending colon. - No specimens collected. Recommendations : - Discharge patient to home. - Resume previous diet. - Continue present medications. - Repeat colonoscopy in 5 years for surveillance. - Return to GI office in 2 weeks. My findings are described in the full procedure note, which is enclosed. If I can be of further assistance, please feel free to contact me at . Sincerely, Oren Friend, 01/01/2021 2:33:30 PM This report has been signed electronically. Abhijeet Arellano MD
--- NOTE | 2021-01-01 14:42 | SUR.PHASEII ---
into phase 2 recovery 1442, second case
== END 2021-01-01 15:40 | disposition home or self-care (01) ==
LOC: EN 06:57 → AC 06:58
PROVIDERS: Internal Medicine Gastroenterology; PCP Family Medicine Geriatric Medicine; Referring Provider Family Medicine Geriatric Medicine; Visit Provider Surgery
PROC: 0DJD8ZZ Inspection of Lower Intestinal Tract, Via Natural or Artificial Opening Endoscopic (ICD-10-PCS; CPT 45378; principal; 2021-01-01 07:55)
DX: K63.89 Other specified diseases of intestine (principal); R93.3 Abnormal findings on diagnostic imaging of other parts of digestive tract; Z53.9 Procedure and treatment not carried out, unspecified reason; D50.9 Iron deficiency anemia, unspecified; F32.A Depression, unspecified; M19.90 Unspecified osteoarthritis, unspecified site; Z79.899 Other long term (current) drug therapy; Z87.891 Personal history of nicotine dependence
CPT/HCPCS: 43235; 45378; J7120; J2405

== ENCOUNTER → 2021-02-01 14:51 | Outpatient (CLI) | payer MEDICARE, SELFPAY ==
[2021-02-01 18:40] LABS: Absolute Lymphocyte Count 1.82 X10^3/uL (0.83-4.51); Absolute Neutrophil Count 3.7 X10^3/uL (2.0-7.7); Basophil# 0.02 X10^3/uL; Basophil% 0.3 % (0-1); Eosinophil# 0.11 X10^3/uL; Eosinophils% 1.8 % (0-5); Hematocrit 35.4 % (37-47); Hemoglobin 10.7 g/dL (12.0-15.0); Lymphocyte # 1.82 X10^3/ul (0.83-4.51); Lymphocyte % 29.4 % (19-41); Mean Corp Hgb Conc 30.2 g/dL (32-36); Mean Corpuscular Hgb 25.6 pg (27.0-32.0); Mean Corpuscular Volume 84.7 fL (81-99); Mean Platelet Vol. 9.3 fl (6.2-12.0); Monocyte% 8.1 % (0-10); NRBC Flagged by Analyzer 0 % (0-5); Neutrophil # 3.71 X10^3/uL (2.7-7.7); Neutrophil % 60.1 % (47-70); Platelet Count 267 K/mm3 (150-450); RBC Distribution Width CV 19.8 % (11.6-14.6); RBC Distribution Width SD 60.4 fl (35.1-43.9); Red Blood Count 4.18 M/mm3 (4.2-5.4); White Blood Count 6.2 K/mm3 (4.4-11.0)
== END ==
PROVIDERS: PCP Family Medicine Geriatric Medicine; Visit Provider Family Medicine Geriatric Medicine
DX: D64.9 Anemia, unspecified (principal)
CPT/HCPCS: 36415; 85025

== ENCOUNTER → 2021-09-02 | Outpatient (CLI) | payer MEDICARE, SELFPAY ==
[2021-09-02 12:50] LABS: Absolute Lymphocyte Count 2.06 X10^3/uL (0.83-4.51); Absolute Neutrophil Count 3.5 X10^3/uL (2.0-7.7); Basophil# 0.02 X10^3/uL; Basophil% 0.3 % (0-1); Eosinophil# 0.13 X10^3/uL; Eosinophils% 2.1 % (0-5); Hematocrit 39.7 % (37-47); Lymphocyte # 2.06 X10^3/ul (0.83-4.51); Lymphocyte % 33.2 % (19-41); Mean Corp Hgb Conc 32.7 g/dL (32-36); Mean Corpuscular Hgb 29.1 pg (27.0-32.0); Mean Platelet Vol. 9.4 fl (6.2-12.0); Monocyte# 0.51 X10^3/uL; Monocyte% 8.2 % (0-10); NRBC Flagged by Analyzer 0 % (0-5); Neutrophil # 3.47 X10^3/uL (2.7-7.7); Neutrophil % 55.9 % (47-70); Platelet Count 247 K/mm3 (150-450); RBC Distribution Width CV 13.4 % (11.6-14.6); RBC Distribution Width SD 43.8 fl (35.1-43.9); Red Blood Count 4.46 M/mm3 (4.2-5.4); White Blood Count 6.2 K/mm3 (4.4-11.0)
[2021-09-02 12:57] LABS: AST(SGOT) 16 U/L (15-37); Alanine Aminotransfer ALT/SGPT 22 U/L (13-56); Albumin, Serum 3.6 g/dL (3.2-5.0); Alkaline Phosphatase 118 U/L (45-117); Anion Gap 6 (5-15); BUN 11 mg/dL (7-18); BUN/Creat Ratio 14.1 RATIO (10-20); Calcium,Total 9.3 mg/dL (8.5-10.1); Chloride 103 mmol/L (98-107); Creatinine, Serum 0.78 mg/dL (0.55-1.02); EST Glomerular Filtration Rate 76 mL/min (>60); Est Glom Filt Rate - Afr Amer 92 mL/min (>60); Globulin 3.6 g/dL (2.2-4.2); Glucose 101 mg/dL (74-106); Potassium 4.1 mmol/L (3.5-5.1); Protein, Total 7.2 g/dL (6.4-8.2); Sodium Level 136 mmol/L (136-145); Thyroid Stim Hormone (TSH) 1.92 uIU/mL (0.358-3.74)
[2021-09-02 12:59] LABS: Vitamin D,25 Hydroxy 33.4 ng/mL
== END | disposition home or self-care (01) ==
LOC: POLAB3 09:20
PROVIDERS: PCP Family Medicine Geriatric Medicine; Visit Provider Family Medicine Geriatric Medicine
DX: E55.9 Vitamin D deficiency, unspecified (principal); R53.83 Other fatigue
CPT/HCPCS: 36415; 80053; 82306; 84443; 85025

== ENCOUNTER → 2021-11-29 | Outpatient (CLI) | payer MEDICARE, SELFPAY ==
--- NOTE | 2021-11-29 16:36 | RAD_ITS ---
STUDY: X-RAY - PELVIS AND LEFT HIP REASON FOR EXAM: Female, 76 years old. PAIN IN L HIP TECHNIQUE: 3 views of the pelvis and hip. COMPARISON: None. FINDINGS: There is a non-specific bowel gas pattern. Normal visualized soft tissue structures. Normal bilateral iliac wings, sacroiliac joints and visualized sacrum. Normal bilateral superior and inferior pubic rami. Normal pubic symphysis. Normal bilateral ischial tuberosities. Status post left hip arthroplasty with normal articulation between acetabular and femoral components. Mild joint space narrowing right hip. RAD/HIP, UNI W/ Pelvis 2-3 Views IMPRESSION: Left hip arthroplasty. Electronically Signed: Vish Ewing MD, CAROLE at 10:19 EDT ,
--- NOTE | 2021-11-29 16:36 | RAD_ITS ---
STUDY: X-RAY - LUMBAR SPINE REASON FOR EXAM: Female, 76 years old. LOW BACK PAIN TECHNIQUE: 3 view(s) of the lumbar spine were obtained. COMPARISON: None FINDINGS: Normal lumbar lordosis. There is no substantial scoliosis. There is a normal alignment of the vertebrae. Mild diffuse anterior osteophyte formation. Mild diffuse loss of disc space height. Left hip arthroplasty. The soft tissue structures are unremarkable. RAD/Lumbar Spine 2 or 3 Views IMPRESSION: Mild degenerative changes as above. Electronically Signed: Vish Ewing MD, CAROLE at 10:13 EDT ,
== END | disposition home or self-care (01) ==
LOC: RAD 16:25
PROVIDERS: PCP Family Medicine Geriatric Medicine; Referring Provider Family Medicine Geriatric Medicine; Visit Provider Family Medicine Geriatric Medicine
DX: M54.50 Low back pain, unspecified (principal); M25.552 Pain in left hip
CPT/HCPCS: 72100; 73502

== ENCOUNTER → 2022-09-08 | Outpatient (CLI) | payer MEDICARE, SELFPAY ==
[2022-09-08 12:38] LABS: Absolute Neutrophil Count 3.7 X10^3/uL (2.0-7.7); Basophil# 0.02 X10^3/uL; Basophil% 0.3 % (0-1); Eosinophil# 0.09 X10^3/uL; Eosinophils% 1.5 % (0-5); Hematocrit 41.8 % (37-47); Hemoglobin 13.6 g/dL (12.0-15.0); Lymphocyte % 28.7 % (19-41); Mean Corp Hgb Conc 32.5 g/dL (32-36); Mean Corpuscular Hgb 29.6 pg (27.0-32.0); Mean Corpuscular Volume 90.9 fL (81-99); Mean Platelet Vol. 9.6 fl (6.2-12.0); Monocyte# 0.41 X10^3/uL; Monocyte% 6.9 % (0-10); NRBC Flagged by Analyzer 0 % (0-5); Neutrophil # 3.69 X10^3/uL (2.7-7.7); Neutrophil % 62.4 % (47-70); Platelet Count 253 K/mm3 (150-450); RBC Distribution Width CV 14.2 % (11.6-14.6); RBC Distribution Width SD 47.1 fl (35.1-43.9); White Blood Count 5.9 K/mm3 (4.4-11.0)
[2022-09-08 13:03] LABS: Vitamin D,25 Hydroxy 35.6 ng/mL
[2022-09-08 13:11] LABS: ALB/GLOB Ratio 0.9 RATIO (0.9-2.4); AST(SGOT) 16 U/L (15-37); Alanine Aminotransfer ALT/SGPT 16 U/L (13-56); Albumin, Serum 3.4 g/dL (3.2-5.0); Alkaline Phosphatase 123 U/L (45-117); Anion Gap 5 (5-15); BUN 15 mg/dL (7-18); BUN/Creat Ratio 15.4 RATIO (10-20); Chloride 106 mmol/L (98-107); Creatinine, Serum 0.98 mg/dL (0.55-1.02); EST Glomerular Filtration Rate 58 mL/min (>60); Est Glom Filt Rate - Afr Amer 71 mL/min (>60); Globulin 3.7 g/dL (2.2-4.2); Glucose 98 mg/dL (74-106); Potassium 4.4 mmol/L (3.5-5.1); Protein, Total 7.1 g/dL (6.4-8.2); Sodium Level 137 mmol/L (136-145); Thyroid Stim Hormone (TSH) 2.18 uIU/mL (0.358-3.74)
== END | disposition home or self-care (01) ==
LOC: POLAB3 10:43
PROVIDERS: PCP Family Medicine Geriatric Medicine; Visit Provider Family Medicine Geriatric Medicine
DX: R53.83 Other fatigue (principal); E55.9 Vitamin D deficiency, unspecified
CPT/HCPCS: 36415; 80053; 82306; 84443; 85025

== ENCOUNTER → 2022-10-17 | Outpatient (CLI) | payer MEDICARE, SELFPAY ==
[2022-10-17 17:32] LABS: Absolute Lymphocyte Count 2.32 X10^3/uL (0.83-4.51); Absolute Neutrophil Count 8.3 X10^3/uL (2.0-7.7); Basophil# 0.03 X10^3/uL; Basophil% 0.2 % (0-1); Eosinophil# 0.25 X10^3/uL; Eosinophils% 2.1 % (0-5); Hematocrit 43.3 % (37-47); Hemoglobin 13.9 g/dL (12.0-15.0); Lymphocyte # 2.32 X10^3/ul (0.83-4.51); Lymphocyte % 19.1 % (19-41); Mean Corp Hgb Conc 32.1 g/dL (32-36); Mean Corpuscular Hgb 28.8 pg (27.0-32.0); Mean Corpuscular Volume 89.8 fL (81-99); Mean Platelet Vol. 9.6 fl (6.2-12.0); Monocyte# 1.07 X10^3/uL; Monocyte% 8.8 % (0-10); NRBC Flagged by Analyzer 0 % (0-5); Neutrophil # 8.33 X10^3/uL (2.7-7.7); Neutrophil % 68.4 % (47-70); Platelet Count 263 K/mm3 (150-450); RBC Distribution Width CV 13.9 % (11.6-14.6); RBC Distribution Width SD 46.1 fl (35.1-43.9); Red Blood Count 4.82 M/mm3 (4.2-5.4); White Blood Count 12.2 K/mm3 (4.4-11.0)
[2022-10-17 17:42] LABS: ALB/GLOB Ratio 0.7 RATIO (0.9-2.4); AST(SGOT) 20 U/L (15-37); Alanine Aminotransfer ALT/SGPT 67 U/L (13-56); Albumin, Serum 2.7 g/dL (3.2-5.0); Alkaline Phosphatase 95 U/L (45-117); Amylase 53 U/L (25-115); Anion Gap 7 (5-15); BUN 21 mg/dL (7-18); BUN/Creat Ratio 23.5 RATIO (10-20); Calcium,Total 8.6 mg/dL (8.5-10.1); Chloride 104 mmol/L (98-107); Creatinine, Serum 0.89 mg/dL (0.55-1.02); EST Glomerular Filtration Rate 65 mL/min (>60); Est Glom Filt Rate - Afr Amer 78 mL/min (>60); Globulin 3.8 g/dL (2.2-4.2); Glucose 115 mg/dL (74-106); Lipase 58 U/L (13-75); Potassium 4.2 mmol/L (3.5-5.1); Protein, Total 6.5 g/dL (6.4-8.2); Sodium Level 138 mmol/L (136-145); Thyroid Stim Hormone (TSH) 3.19 uIU/mL (0.358-3.74)
== END | disposition home or self-care (01) ==
LOC: POLAB3 16:52
PROVIDERS: PCP Family Medicine Geriatric Medicine; Visit Provider Family Medicine Geriatric Medicine
DX: K92.1 Melena (principal); R53.83 Other fatigue
CPT/HCPCS: 36415; 80053; 82150; 83690; 84443; 85025

== ENCOUNTER → 2022-10-17 | Outpatient (CLI) | payer MEDICARE, SELFPAY ==
--- NOTE | 2022-10-17 19:02 | CT_ITS ---
STUDY: CT ABDOMEN AND PELVIS WITH CONTRAST REASON FOR EXAM: Female, 77 years old. UNSPECIFIED ABD PAIN RADIATION DOSAGE (If Supplied By Facility): CTDIvol = ( 24.32 ) mGy, DLP = ( 857.32 ) mGycm TECHNIQUE: Transaxial images were obtained from the dome of the diaphragm to the symphysis pubis with oral contrast. Oral and amp; IV Gastrografin and amp; 100mL Isovue-300 was administered. Sagittal and coronal images were reconstructed. Individualized dose optimization techniques were used for this CT. COMPARISON: 12/16/2020 FINDINGS: The visualized lung bases are unremarkable. The visualized portions of the heart are within normal limits. Normal liver. Normal gallbladder and extrahepatic biliary system. Normal spleen. Normal pancreas. Normal bilateral adrenal glands. Normal right kidney. Normal left kidney. Small left renal cyst. Suspect parapelvic cysts in both kidneys. There is a large hiatal hernia composed mostly of the fundus of the stomach. Normal small intestine. Normal colon. There is non-visualization of the appendix. Normal abdominal aorta. Normal inferior vena cava. Normal retroperitoneum. Normal urinary bladder. Normal abdominal wall. Status post left hip arthroplasty which produces streak artifact obscures the pelvis. CT/Abdomen/Pelvis WITH Contrast IMPRESSION: No acute abnormality. Large hiatal hernia. Electronically Signed: Jose Siegel MD at 20:34 EDT ,
== END | disposition home or self-care (01) ==
PROVIDERS: PCP Family Medicine Geriatric Medicine; Referring Provider Family Medicine Geriatric Medicine; Visit Provider Family Medicine Geriatric Medicine
DX: R10.9 Unspecified abdominal pain (principal); R53.83 Other fatigue; K92.1 Melena
CPT/HCPCS: 36415; 74177; 80053; 82150; 83690; 84443; 85025; Q9967

== ENCOUNTER → 2022-10-19 | Outpatient (CLI) | payer MEDICARE, SELFPAY | END | disposition home or self-care (01) | LOC: LABSPEC 15:50 | PROVIDERS: PCP Family Medicine Geriatric Medicine; Referring Provider Family Medicine Geriatric Medicine; Visit Provider Family Medicine Geriatric Medicine | DX: K92.1 Melena (principal) | CPT/HCPCS: 82274 ==

== ENCOUNTER → 2023-03-14 | Outpatient (CLI) | payer MEDICARE, SELFPAY | END | disposition home or self-care (01) | LOC: PSN 12:15 | PROVIDERS: PCP Family Medicine Geriatric Medicine; Referring Provider Family Medicine Geriatric Medicine; Visit Provider Family Medicine Geriatric Medicine | DX: R68.83 Chills (without fever) (principal) | CPT/HCPCS: 87631 ==

== ENCOUNTER → 2023-03-14 | Outpatient (CLI) | payer MEDICARE, SELFPAY ==
[2023-03-14 12:23] LABS: Absolute Lymphocyte Count 2.31 X10^3/uL (0.83-4.51); Absolute Neutrophil Count 2.6 X10^3/uL (2.0-7.7); Basophil# 0.04 X10^3/uL; Basophil% 0.7 % (0-1); Eosinophil# 0.25 X10^3/uL; Eosinophils% 4.4 % (0-5); Hematocrit 39.5 % (37-47); Hemoglobin 12.1 g/dL (12.0-15.0); Lymphocyte # 2.31 X10^3/ul (0.83-4.51); Lymphocyte % 40.7 % (19-41); Mean Corp Hgb Conc 30.6 g/dL (32-36); Mean Corpuscular Hgb 26.4 pg (27.0-32.0); Mean Corpuscular Volume 86.2 fL (81-99); Mean Platelet Vol. 9.7 fl (6.2-12.0); Monocyte# 0.43 X10^3/uL; Monocyte% 7.6 % (0-10); NRBC Flagged by Analyzer 0 % (0-5); Neutrophil # 2.63 X10^3/uL (2.7-7.7); Neutrophil % 46.4 % (47-70); Platelet Count 227 K/mm3 (150-450); RBC Distribution Width CV 14.8 % (11.6-14.6); RBC Distribution Width SD 46.9 fl (35.1-43.9); Red Blood Count 4.58 M/mm3 (4.2-5.4); White Blood Count 5.7 K/mm3 (4.4-11.0)
[2023-03-14 12:39] LABS: Vitamin D,25 Hydroxy 30.7 ng/mL
[2023-03-14 12:47] LABS: AST(SGOT) 13 U/L (15-37); Alanine Aminotransfer ALT/SGPT 17 U/L (13-56); Albumin, Serum 3.4 g/dL (3.2-5.0); Alkaline Phosphatase 133 U/L (45-117); Anion Gap 5 (5-15); BUN 11 mg/dL (7-18); BUN/Creat Ratio 12.6 RATIO (10-20); Calcium,Total 9.2 mg/dL (8.5-10.1); Chloride 108 mmol/L (98-107); Creatinine, Serum 0.87 mg/dL (0.55-1.02); EST Glomerular Filtration Rate 67 mL/min (>60); Est Glom Filt Rate - Afr Amer 81 mL/min (>60); Globulin 3.4 g/dL (2.2-4.2); Glucose 150 mg/dL (74-106); Potassium 3.7 mmol/L (3.5-5.1); Protein, Total 6.8 g/dL (6.4-8.2); Sodium Level 141 mmol/L (136-145); Thyroid Stim Hormone (TSH) 1.97 uIU/mL (0.358-3.74)
== END | disposition home or self-care (01) ==
LOC: POLAB3 11:16
PROVIDERS: PCP Family Medicine Geriatric Medicine; Visit Provider Family Medicine Geriatric Medicine
DX: R53.83 Other fatigue (principal); E55.9 Vitamin D deficiency, unspecified
CPT/HCPCS: 36415; 80053; 82306; 84443; 85025

== ENCOUNTER 2023-04-08 15:14 | Emergency (ER) | payer MEDICARE, SELFPAY ==
[2023-04-08 15:18] VITALS: BP 128/87; PULSE 130; RESP 16; TEMP 36.2; BMI 25.9
[2023-04-08 15:21] VITALS: BP 128/87; PULSE 130; RESP 18; TEMP 36.2
--- NOTE | 2023-04-08 15:53 | EX.ED.VIS.EY ---
HPI History of Present Illness Chief Complaint: Eye Problem [facility] Medical History Anemia Black tarry stools COVID-19 Depression Difficulty swallowing Gastric reflux Hiatal hernia History of hiatal hernia Osteoarthritis Shortness of breath on exertion Wears glasses Home Medications citalopram 40 mg tablet 40 mg PO DAILY 12/30/20 [History Last Taken Unknown] amoxicillin 875 mg-potassium clavulanate 125 mg tablet 1 tab PO Q12H #14 tabs 04/08/23 [Rx Last Taken Unknown] ketorolac 0.4 % eye drops 1 drp EACH EYE Q6H 7 days #70 mL 04/08/23 [Rx Last Taken Unknown] moxifloxacin 0.5 % eye drops 1 drp EACH EYE TID 7 days #63 mL 04/08/23 [Rx Last Taken Unknown] Allergy/AdvReac Type Severity Reaction Status Date / Time No Known Allergies Allergy Verified 04/08/23 15:16 Family History Mother Myocardial infarction, Onset Age: 80 Brother Heart disease Sister CVA (cerebral vascular accident) Surgical History H/O arthroscopic knee surgery (2018) History of total hip arthroplasty (2009) S/P appendectomy S/P cataract extraction S/P oophorectomy Social History Smoking Status: Never smoker alcohol intake: current alcohol intake frequency: holidays/special occasions only EXAM Physical Exam Const Vital Signs: 04/08/23 15:18 04/08/23 15:21 Temperature 97.2 F L 97.2 F L Temperature Source Temporal Temporal Pulse Rate 130 H 130 H Respiratory Rate 16 18 Blood Pressure 128/87 H 128/87 H Blood Pressure Mean 100 100 MDM MDM MDM Narrative Medical decision making narrative: HISTORY OF PRESENT ILLNESS: 77-year-old female here with bilateral eye redness Notes she woke this morning with her eyes matted shut . She endorses having cold started yesterday. Notes redness and swelling of her eyelids. REVIEW OF SYSTEMS: Pertinent positives: Eyelid swelling, congestion, cough Pertinent negatives: Chest pain, shortness of breath, neck swelling, decreased vision PHYSICAL EXAM: Nursing triage notes reviewed, Vital signs reviewed Constitutional: please see mdm HENT: MMM, bilateral TMs pearly perdomo no hyperemia, no middle ear effusions Eyes: Pupils equal round and reactive to light, Extraocular muscles intact, visual hercules intact, visual acuity 20/30 OS, 20/25 OD, ED bedside POCUS ocular ultrasound showed an optic nerve diameter measured from 3 mm below the posterior aspect of the retina was less than 5 mm suggesting normal intraocular pressure. Neck: No stridor, no JVD, full neck ROM Lungs: Clear to auscultation, No wheezing or rales. No increased work of breathing, no conversational dyspnea, no accessory muscle use, no nasal flaring. No respiratory distress noted Heart: Regular rate and rhythm, No murmurs, No rubs and No gallops, 2+ distal pulses (radial, femoral, posterior tibial) in all extremities Abdomen: Soft, there is no tenderness, rigidity, rebound or guarding, no obvious peritoneal signs, no palpable pulsatile abdominal masses, no auscultated abdominal bruit : No CVAT Extremities: No edema Neuro: No focal neurological deficits, cranial nerves II through XII intact, 5/5 strength in all extremities. Intact sensation to light touch in all extremities, 2+ reflexes bilateral patella tendons. Normal gait. No ataxia. Skin: No rash or lesions noted MEDICAL DECISION MAKING: Chief Complaint: Eye redness External records reviewed: No recent ED visits Factors affecting care: None [facility] Narrative: Patient was initially tachycardic otherwise hemodynamically stable, afebrile and nontoxic-appearing. Exam consistent with likely preseptal cellulitis. No evidence of dacryocystitis. No signs of hordeolum or chalazion. The patient's visual acuity was intact. No sign of elevated intraocular pressure on POCUS ultrasound. No focal neurologic deficits, I considered the following differential diagnosis: Viral illness, hordoleum, chalazion, dacryocystitis Gave the patient topical tetracaine, IV Toradol for pain relief. I obtained a broad lab and imaging workup to further elucidate the etiology patient complaint ALL IMAGES (IF OBTAINED) HAVE BEEN PERSONALLY REVIEWED AND INTERPRETED BY MYSELF. EKG with normal sinus rhythm, normal axis, no intervals, no STEMI CBC without leukocytosis, no severe anemia, no thrombocytopenia. BMP without evidence of significant electrolyte abnormalities, no anion gap, no acute kidney injury. CT scan of the patient with evidence of preseptal cellulitis, no evidence of orbital cellulitis COVID, RSV and flu are negative Synthesis the patient history, physical exam, labs images suggest preseptal cellulitis and conjunctivitis. Will give topical and oral antibiotics. Will give topical anti-inflammatory eyedrops as well for pain control at home. The patient and/or family, caregivers express understanding. The patient and/or family, caregivers agrees with the plan. Shared decision making: I will have a discussion with the patient and or visitors regarding risk/benefits of further testing or admission. They will be made aware of of the risk/benefits inherent in this decision they will be given the opportunity to voice understanding. Total critical care time today provided was at least 0 [] minutes. This excludes separately billable procedures. Critical care time (if documented) is secondary to the patient having high probability of clinically significant/life threatening deterioration in the patient's condition which required my urgent intervention. Impression: 1. Preseptal cellulitis 2. Bacterial conjunctivitis Dispo: Discharge home This note was generated with Erydel dictation software. It may contain incorrect words, spelling, and punctuation that were not noted in review of the chart prior to signing. Discharge Plan Triage Chief Complaint: Eye Problem ED Provider: Liam Cuevas Dx/Rx/DC Orders Clinical Impression: Preseptal cellulitis Instructions: ED Conjunctivitis, Bacterial, ED Periorbital Cellulitis Prescriptions: New amoxicillin-pot clavulanate 875-125 mg tablet 1 tab PO Q12H Qty: 14 0RF moxifloxacin 0.5 % drops 1 drp EACH EYE TID 7 Days Qty: 63 0RF ketorolac 0.4 % drops 1 drp EACH EYE Q6H 7 Days Qty: 70 0RF No Action citalopram 40 mg tablet 40 mg PO DAILY Primary Care Provider: David Winters Chi Referrals: David Winters Chi, MD [Primary Care Provider] - Activity Restrictions/Additional Instructions: Thank you for trusting us with your care today! Please take Tylenol (2 pills, 650 mg), ibuprofen (2 pills, 400 mg) every 6 hours as needed for pain and fever control. Please take oral antibiotics until course complete. Please take topical antibiotics until course complete. Please take topical anti-inflammatory eyedrops as needed. Please return to the emergency department if your symptoms change or worsen. Please follow with your primary care physician for further outpatient evaluation and management. Disposition Disposition: Home, Self Care
--- NOTE | 2023-04-08 16:05 | EKG12_ITS ---
Test Reason : EYE Blood Pressure : / mmHG Vent. Rate : 074 BPM Atrial Rate : 074 BPM P-R Int : 200 ms QRS Dur : 074 ms QT Int : 388 ms P-R-T Axes : 068 023 056 degrees QTc Int : 430 ms Normal sinus rhythm Normal ECG Confirmed by KATI MACARIO, YANETH ([id number]), editorial assistant KATIE THOMAS ([id number]) on 04/10/2023 10:11:17 AM Referred By: Confirmed By:YANETH PARIKH MD
--- NOTE | 2023-04-08 16:05 | CT_ITS ---
STUDY: CT PARANASAL SINUSES WITH CONTRAST REASON FOR EXAM: Female, 77 years old. Bilateral eye pain, redness, rule out orbital cellulitis RADIATION DOSAGE (If Supplied By Facility): CTDIvol = ( 29.38 ) mGy, DLP = ( 576.84 ) mGycm TECHNIQUE: The patient was scanned in a multi-detector CT scanner. High resolution transaxial imaging was performed following the intravenous administration of IV 100mL Isovue-370. Sagittal and coronal images were reconstructed. Individualized dose optimization techniques were used for this CT. COMPARISON: None. FINDINGS: FRONTAL SINUSES: Normal development and aeration of the bilateral frontal sinuses without mucosal inflammatory disease. ETHMOIDAL SINUSES: Normal development and aeration of the bilateral ethmoidal air cells without mucosal inflammatory disease. MAXILLARY SINUSES: Normal development and aeration of the bilateral maxillary antra without mucosal inflammatory disease. SPHENOIDAL SINUSES: Normal aeration of the bilateral sphenoid sinuses and there is no mucosal inflammatory disease. OMU: Normal aeration of the bilateral maxillary infundibulum. Normal uncinate process, ethmoid bulla, and hiatus semilunaris. MIDDLE TURBINATES: Normal bilateral middle turbinates without a sharif bullosa or paradoxical curvature. INFERIOR TURBINATES: Normal bilateral inferior turbinates. NASAL SEPTUM: Normal midline nasal septum and there is no nasal septal mass lesions, deviation or spur. Normal anterior cranial fossa, eleazar av and cribriform plate. Relatively linear enhancement of the preseptal bilateral orbits as seen on image 40-42 of series 2. No focal fluid collection. No intraconal induration or fluid. No proptosis. Normal nasopharynx without adenoidal pad hypertrophy, or a posterior nasopharyngeal retention cyst. There is no demonstrated enhancing soft tissue or osseous abnormality. CT/Sinus/Facial Bone WITH Contras IMPRESSION: Bilateral preseptal cellulitis. No focal fluid collection. Electronically Signed: Uriah Monreal MD (Brooks) at 17:14 EST Reading Location ID and State: [facility] / [place] , Service support ,
--- OUTSIDE RECORDS SUMMARY | 2023-04-08 16:11 | XMS RPT_ITS ---
Author Name Auto Generated Organization OHIP PROBLEMS No Problem Records Found PROCEDURES No Procedure Records Found RESULTS PROGRESS Observed: 04/08/2023 3:04 PM Status: COMPLETED Source: [facility] REPOSITORY HNO ID: [id number] Author: NICK VÁZQUEZ APRN.SOCIAL SCIENCES RESEARCH SCIENTIST Service: ? Author Type: Nurse Practitioner Type: Progress Notes Filed: 04/08/2023 15:04 Note Text: Patient came in with complaints of severe eye pain. Patient is also having vision changes. Patient says they are swollen close this morning. Due to the vision changes and the eyeball pain patient is being sent to the ER for full evaluation. will take her. Patient was okay with this care plan. CNOV Observed: 04/08/2023 3:00 PM Status: COMPLETED Source: [facility] REPOSITORY Office Visit ([facility]) AJITH BERRIOS ([id number]) 1945 F Date Time Provider Department 04/08/23 3:00 PM NICK VÁZQUEZ [facility] During your visit today, we recorded the following information about you: Temperature Pulse Respiration Blood pressure 98.2 degrees 118/minute 18/minute 114/77 Weight 74.8 kg Nick Vázquez APRN.SOCIAL SCIENCES RESEARCH SCIENTIST 04/08/2023 3:04 PM Signed Patient came in with complaints of severe eye pain. Patient is also having vision changes. Patient says they are swollen close this morning. Due to the vision changes and the eyeball pain patient is being sent to the ER for full evaluation. will take her. Patient was okay with this care plan. Allergies As of Date: 04/08/2023 (No Known Allergies) Date Reviewed: 04/08/2023 Reviewed by: Oumou Guadarrama LPN - Fully Assessed Reason for Visit: Eye Problem [43] Cmt: Bila eyes swelling, pin, watery, itching, amezcua since this am Cough [28] Cmt: Chest congestion, runny nose, cough x 2 days Primary Visit Diagnosis:Pain of both eyes [H57.13] Other Visit Diagnosis:Vision changes [H53.9] Prescriptions as of 04/08/2023 - citalopram (CELEXA) 20 mg tablet TAKE 1 TABLET BY MOUTH EVERY DAY. THIS IS DOSE DECREASE - vit C/E/Zn/coppr/lutein/zeaxan (PRESERVISION AREDS-2 ORAL) Take 2 capsules by mouth once daily. Problem List As Of Date: 04/08/2023 (None) Encounter Status:Closed by NICK VÁZQUEZ on 04/08/23 ALLERGIES No Allergies Records Found ENCOUNTERS ADMIT/DISCHARGE ACCOUNT NUMBER ADMITTING ENCOUNTER CLASS LOC ATION SOURCE 04/08/2023 [id number] [facility] PAYERS ENCOUNTER GUARANTOR PAYER SUBSCRIBER SOURCE 04/08/2023 Primary Insurance:PRIMETIME HMO POSPolicy Number: [id number] Date:[id number] Name:Sarthak AIJTH Arellano SUZEOB: [id number] [address] [place], [place] [id number] [place] [address]
[2023-04-08] MEDS: Tetracaine 0.5% Ophthalmic Bottle 1 DRP EACH EYE (16:18)
[2023-04-08] MEDS: Ketorolac 15 MG/ML Vial IV (16:18)
[2023-04-08 16:27] LABS: Absolute Neutrophil Count 5.5 X10^3/uL (2.0-7.7); Basophil# 0.02 X10^3/uL; Basophil% 0.3 % (0-1); Eosinophil# 0.15 X10^3/uL; Eosinophils% 1.9 % (0-5); Hematocrit 37.7 % (37-47); Hemoglobin 11.9 g/dL (12.0-15.0); Lymphocyte % 21.5 % (19-41); Mean Corp Hgb Conc 31.6 g/dL (32-36); Mean Corpuscular Volume 85.5 fL (81-99); Mean Platelet Vol. 9.2 fl (6.2-12.0); Monocyte# 0.56 X10^3/uL; Monocyte% 7.1 % (0-10); NRBC Flagged by Analyzer 0 % (0-5); Neutrophil # 5.46 X10^3/uL (2.7-7.7); Neutrophil % 68.9 % (47-70); Platelet Count 225 K/mm3 (150-450); RBC Distribution Width SD 49.5 fl (35.1-43.9); Red Blood Count 4.41 M/mm3 (4.2-5.4); White Blood Count 7.9 K/mm3 (4.4-11.0)
--- NOTE | 2023-04-08 16:33 | ED.RN ---
MD at bedside with ultrasound for eye exam.
[2023-04-08 16:44] LABS: Anion Gap 4 (5-15); BUN 12 mg/dL (7-18); Calcium,Total 9.4 mg/dL (8.5-10.1); Chloride 106 mmol/L (98-107); Creatinine, Serum 0.75 mg/dL (0.55-1.02); EST Glomerular Filtration Rate 79 mL/min (>60); Est Glom Filt Rate - Afr Amer 96 mL/min (>60); Estimated Creatinine Clearance 60.35 ml/min; Glucose 111 mg/dL (74-106); Potassium 3.9 mmol/L (3.5-5.1); Sodium Level 138 mmol/L (136-145)
[2023-04-08 16:45] VITALS: BP 167/71; PULSE 77; RESP 16; TEMP 36.2; O2SAT 96
--- NOTE | 2023-04-08 17:00 | RAD_ITS ---
STUDY: X-RAY CHEST REASON FOR EXAM: Female, 77 years old. cough TECHNIQUE: PA and lateral views of the chest. COMPARISON: 06/10/2020. FINDINGS: EKG leads project over the chest. The lungs are clear and expanded. There is no demonstrated pleural abnormality. Normal size heart. Normal mediastinum and chandrika. Normal visualized pulmonary arteries. There is atherosclerotic calcification of the aortic arch with tortuosity. There is demineralization of the osseous structures. Normal visualized ribs, clavicles, and shoulders. Hiatal hernia. RAD/Chest PA and Lateral IMPRESSION: Stable, nonacute x-ray examination of the chest. Electronically Signed: Uriah Monreal MD (Brooks) at 17:17 EST ,
[2023-04-08] MEDS: Amox/Clavulanate 875 MG Tablet PO (18:06)
[2023-04-08 18:08] VITALS: BP 129/109; PULSE 75; RESP 16; TEMP 36.2; O2SAT 95
== END 2023-04-08 18:31 | disposition home or self-care (01) ==
PROVIDERS: Emergency Provider Emergency Medicine; PCP Family Medicine Geriatric Medicine; Visit Provider Emergency Medicine
DX: L03.213 Periorbital cellulitis (principal); B96.89 Other specified bacterial agents as the cause of diseases classified elsewhere; H10.9 Unspecified conjunctivitis; Z86.16 Personal history of COVID-19; F32.A Depression, unspecified; R05.9 Cough, unspecified
CPT/HCPCS: 70487; 71046; 80048; 85025; 87631; 93005; 96374; 99284; Q9967; A4216

== ENCOUNTER → 2023-06-13 | Outpatient (CLI) | payer MEDICARE, SELFPAY ==
[2023-06-13 13:01] LABS: Absolute Lymphocyte Count 3.87 X10^3/uL (0.83-4.51); Absolute Neutrophil Count 7.4 X10^3/uL (2.0-7.7); Basophil# 0.04 X10^3/uL; Basophil% 0.3 % (0-1); Eosinophil# 0.14 X10^3/uL; Eosinophils% 1.1 % (0-5); Hematocrit 39.2 % (37-47); Hemoglobin 12.4 g/dL (12.0-15.0); Lymphocyte # 3.87 X10^3/ul (0.83-4.51); Mean Corp Hgb Conc 31.6 g/dL (32-36); Mean Corpuscular Hgb 27.7 pg (27.0-32.0); Mean Corpuscular Volume 87.7 fL (81-99); Mean Platelet Vol. 9.2 fl (6.2-12.0); Monocyte# 0.83 X10^3/uL; Monocyte% 6.6 % (0-10); NRBC Flagged by Analyzer 0 % (0-5); Neutrophil # 7.41 X10^3/uL (2.7-7.7); Neutrophil % 59.4 % (47-70); Platelet Count 315 K/mm3 (150-450); RBC Distribution Width CV 15.7 % (11.6-14.6); RBC Distribution Width SD 49.9 fl (35.1-43.9); Red Blood Count 4.47 M/mm3 (4.2-5.4); White Blood Count 12.5 K/mm3 (4.4-11.0)
[2023-06-13 13:14] LABS: D-Dimer Quantitative (DVT/PE) 0.77 FEU/ug/m (0.27-0.49)
[2023-06-13 13:15] LABS: BNP,B-Type NATRIURETIC PEPTIDE 32.7 pg/mL (0-100)
[2023-06-13 13:26] LABS: ALB/GLOB Ratio 0.9 RATIO (0.9-2.4); AST(SGOT) 18 U/L (15-37); Alanine Aminotransfer ALT/SGPT 26 U/L (13-56); Albumin, Serum 3.1 g/dL (3.2-5.0); Alkaline Phosphatase 102 U/L (45-117); Anion Gap 6 (5-15); BUN 16 mg/dL (7-18); BUN/Creat Ratio 19.2 RATIO (10-20); CPK Total, Creatine Kinase 17 U/L (26-192); Calcium,Total 8.6 mg/dL (8.5-10.1); Chloride 102 mmol/L (98-107); Creatinine, Serum 0.83 mg/dL (0.55-1.02); EST Glomerular Filtration Rate 70 mL/min (>60); Est Glom Filt Rate - Afr Amer 85 mL/min (>60); Globulin 3.5 g/dL (2.2-4.2); Glucose 91 mg/dL (74-106); Potassium 3.8 mmol/L (3.5-5.1); Protein, Total 6.6 g/dL (6.4-8.2); Sodium Level 136 mmol/L (136-145); Thyroid Stim Hormone (TSH) 2.12 uIU/mL (0.358-3.74); Troponin-I HS 4 pg/mL (3.0-54.0)
[2023-06-14 05:57] LABS: Myoglobin, Serum 28 ng/mL (25-58)
== END | disposition home or self-care (01) ==
LOC: POLAB3 11:34
PROVIDERS: PCP Family Medicine Geriatric Medicine; Visit Provider Family Medicine Geriatric Medicine
DX: E78.5 Hyperlipidemia, unspecified (principal); R07.9 Chest pain, unspecified; R53.83 Other fatigue; R06.02 Shortness of breath
CPT/HCPCS: 36415; 80053; 82550; 83874; 83880; 84443; 84484; 85025; 85379

== ENCOUNTER → 2023-06-13 | Outpatient (CLI) | payer MEDICARE, SELFPAY ==
--- NOTE | 2023-06-13 11:45 | CT_ITS ---
STUDY: CTA CHEST REASON FOR EXAM: Female, 77 years old. Pain in thoracic spine RADIATION DOSAGE (If Supplied By Facility): CTDIvol = ( 5.84 ) mGy, DLP = ( 198.26 ) mGycm TECHNIQUE: The examination was performed with the intravenous administration of IV 100mL Isovue-370. Post-processing of the angiographic images was performed, with multiplanar reformation and 3D reconstruction. Individualized dose optimization techniques were used for this CT. COMPARISON: None. FINDINGS: Normal enhancement of the main pulmonary artery and right and left pulmonary arteries. Normal enhancement of the bilateral peripheral pulmonary arteries. There is no demonstrated pulmonary embolism. There is atherosclerotic calcification of the aortic arch with tortuosity. There is no demonstrated aortic dissection. There are calcifications of the coronary arteries. Normal mediastinum. Normal hilar regions. Normal visualized trachea and bronchi. The lungs are well expanded. Normal pulmonary parenchyma. Normal pleura. Normal chest wall structures. There are degenerative changes of thoracic spine. Demineralization of the visualized thoracic vertebrae. There is a large hiatal hernia. CT/CTA Chest W/WO Contrast IMPRESSION: Normal CTA chest examination, without a demonstrated pulmonary embolism or arterial dissection. Electronically Signed: Eddie Guerra MD at 12:49 EDT ,
[2023-06-13 12:17] LABS: CREATININE FINGERSTICK < 1.0 mg/dL (0.55-1.02)
== END | disposition home or self-care (01) ==
PROVIDERS: PCP Family Medicine Geriatric Medicine; Referring Provider Family Medicine Geriatric Medicine; Visit Provider Family Medicine Geriatric Medicine
DX: R68.83 Chills (without fever) (principal); M54.6 Pain in thoracic spine; I25.10 Atherosclerotic heart disease of native coronary artery without angina pectoris
CPT/HCPCS: 71275; 87631; Q9967

== ENCOUNTER 2023-06-14 08:11 | Outpatient (CLI) | payer MEDICARE, SELFPAY ==
[2023-06-14] MEDS: 0.9% Normal Saline (1000mL) 1,000 ML 999 ML IV ×2 (08:27→09:33)
[2023-06-14 08:29] VITALS: BP 148/79; PULSE 93; RESP 16; TEMP 36.1; O2SAT 96; BMI 26.8
[2023-06-14] MEDS: 0.9% NaCl Peripheral Flush Adult/Peds IV (09:34)
[2023-06-14 10:31] VITALS: BP 169/67; PULSE 89; RESP 16; TEMP 35.9
[2023-06-14 13:34] LABS: CPK Total, Creatine Kinase 27 U/L (26-192); Troponin-I HS 5 pg/mL (3.0-54.0)
[2023-06-15 08:11] LABS: Myoglobin, Serum 36 ng/mL (25-58)
== END 2023-06-14 08:12 | disposition home or self-care (01) ==
PROVIDERS: PCP Family Medicine Geriatric Medicine; Referring Provider Family Medicine Geriatric Medicine; Visit Provider Family Medicine Geriatric Medicine
DX: E86.0 Dehydration (principal); R06.02 Shortness of breath; R07.9 Chest pain, unspecified
CPT/HCPCS: 96360; 96361; 36415; 82550; 83874; 84484; J7030; A4216

== ENCOUNTER → 2023-09-05 | Outpatient (CLI) | payer MEDICARE, SELFPAY ==
[2023-09-05 17:42] LABS: Absolute Neutrophil Count 6.5 X10^3/uL (2.0-7.7); Basophil# 0.03 X10^3/uL; Basophil% 0.3 % (0-1); Hemoglobin 12.7 g/dL (12.0-15.0); Lymphocyte % 25.9 % (19-41); Mean Corpuscular Hgb 27.5 pg (27.0-32.0); Mean Corpuscular Volume 88.9 fL (81-99); Monocyte# 0.77 X10^3/uL; Monocyte% 7.7 % (0-10); NRBC Flagged by Analyzer 0 % (0-5); Neutrophil # 6.47 X10^3/uL (2.7-7.7); Neutrophil % 64.6 % (47-70); Platelet Count 290 K/mm3 (150-450); RBC Distribution Width CV 14.5 % (11.6-14.6); RBC Distribution Width SD 46.5 fl (35.1-43.9); Red Blood Count 4.61 M/mm3 (4.2-5.4)
[2023-09-05 17:55] LABS: International Normalized Ratio 1.1; Partial Thromboplast Time 24.7 Seconds (24.1-36.2); Prothrombin Time (Protime)PT. 13.8 SECONDS (11.7-14.9)
[2023-09-05 18:30] LABS: ALB/GLOB Ratio 0.9 RATIO (0.9-2.4); AST(SGOT) 21 U/L (15-37); Alanine Aminotransfer ALT/SGPT 17 U/L (13-56); Albumin, Serum 3.4 g/dL (3.2-5.0); Alkaline Phosphatase 113 U/L (45-117); Anion Gap 7 (5-15); BUN 10 mg/dL (7-18); BUN/Creat Ratio 12.7 RATIO (10-20); Calcium,Total 9.1 mg/dL (8.5-10.1); Chloride 103 mmol/L (98-107); Cholesterol 262 mg/dL (200); Creatinine, Serum 0.78 mg/dL (0.55-1.02); EST Glomerular Filtration Rate 75 mL/min (>60); Est Glom Filt Rate - Afr Amer 91 mL/min (>60); Globulin 3.8 g/dL (2.2-4.2); Glucose 97 mg/dL (74-106); High Density Lipoprotein 60 mg/dL; Iron 36 ug/dL (50-170); Potassium 3.9 mmol/L (3.5-5.1); Protein, Total 7.2 g/dL (6.4-8.2); Sodium Level 136 mmol/L (136-145); Triglycerides 167 mg/dL; Very Low Density Lipoprotein 33 mg/dL (5-40)
[2023-09-05 18:45] LABS: Vitamin D,25 Hydroxy 29.6 ng/mL
== END | disposition home or self-care (01) ==
PROVIDERS: PCP Family Medicine Geriatric Medicine; Referring Provider Family Medicine Geriatric Medicine; Visit Provider Family Medicine Geriatric Medicine
DX: E78.5 Hyperlipidemia, unspecified (principal); R06.02 Shortness of breath; I10 Essential (primary) hypertension; E03.9 Hypothyroidism, unspecified; D64.9 Anemia, unspecified; E55.9 Vitamin D deficiency, unspecified
CPT/HCPCS: 36415; 80053; 80061; 82306; 83540; 84443; 85025; 85610; 85730

== ENCOUNTER → 2023-12-21 | Outpatient (CLI) | payer MEDICARE, SELFPAY | END | disposition home or self-care (01) | LOC: LABSPEC 15:09 | PROVIDERS: PCP Family Medicine Geriatric Medicine; Referring Provider Family Medicine Geriatric Medicine; Visit Provider Family Medicine Geriatric Medicine | DX: N39.0 Urinary tract infection, site not specified (principal) | CPT/HCPCS: 87086; 87088 ==

== ENCOUNTER → 2024-03-06 | Outpatient (CLI) | payer MEDICARE, SELFPAY ==
--- NOTE | 2024-03-06 12:40 | CT_ITS ---
STUDY: CTA CHEST REASON FOR EXAM: Female, 78 years old. ELEVATED D DIMER RADIATION DOSAGE (If Supplied By Facility): CTDIvol = ( 8.54 ) mGy, DLP = ( 357.43 ) mGycm TECHNIQUE: The examination was performed with the intravenous administration of IV 100mL Isovue-370. Post-processing of the angiographic images was performed, with multiplanar reformation and 3D reconstruction. Individualized dose optimization techniques were used for this CT. COMPARISON: Comparison is made with prior study dated June 13, 2023. FINDINGS: Normal enhancement of the main pulmonary artery and right and left pulmonary arteries. Normal enhancement of the bilateral peripheral pulmonary arteries. There is no demonstrated pulmonary embolism. There is atherosclerotic calcification of the aortic arch with tortuosity. There is no demonstrated aortic dissection. Normal heart and pericardium. No significant coronary artery calcification. There are visualized mediastinal lymph nodes, which are within normal size limits, and with normal morphology. Normal hilar regions. Normal visualized trachea and bronchi. The lungs are well expanded. Normal pulmonary parenchyma. Normal pleura. Normal chest wall structures. There are degenerative changes of thoracic spine. Moderate-sized hiatal hernia. CT/CTA Chest W/WO Contrast IMPRESSION: No evidence of pulmonary embolism. Large hiatal hernia. Electronically Signed: Eddie Guerra MD at 13:09 [facility] ,
== END | disposition home or self-care (01) ==
LOC: CT 12:30
PROVIDERS: PCP Family Medicine Geriatric Medicine; Referring Provider Family Medicine Geriatric Medicine; Visit Provider Family Medicine Geriatric Medicine
DX: R79.89 Other specified abnormal findings of blood chemistry (principal)
CPT/HCPCS: 71275; Q9967

== ENCOUNTER → 2024-03-06 | Outpatient (CLI) | payer MEDICARE, SELFPAY ==
[2024-03-06 10:18] LABS: Absolute Lymphocyte Count 2.08 X10^3/uL (0.83-4.51); Absolute Neutrophil Count 3.4 X10^3/uL (2.0-7.7); Basophil# 0.02 X10^3/uL; Basophil% 0.3 % (0-1); Eosinophil# 0.17 X10^3/uL; Eosinophils% 2.7 % (0-5); Hematocrit 36.3 % (37-47); Hemoglobin 11.2 g/dL (12.0-15.0); Lymphocyte # 2.08 X10^3/ul (0.83-4.51); Lymphocyte % 33.6 % (19-41); Mean Corp Hgb Conc 30.9 g/dL (32-36); Mean Corpuscular Hgb 26.4 pg (27.0-32.0); Mean Corpuscular Volume 85.4 fL (81-99); Mean Platelet Vol. 8.9 fl (6.2-12.0); Monocyte% 8.1 % (0-10); NRBC Flagged by Analyzer 0 % (0-5); Neutrophil # 3.41 X10^3/uL (2.7-7.7); Neutrophil % 55.1 % (47-70); Platelet Count 275 K/mm3 (150-450); RBC Distribution Width CV 15.8 % (11.6-14.6); RBC Distribution Width SD 49.3 fl (35.1-43.9); Red Blood Count 4.25 M/mm3 (4.2-5.4); White Blood Count 6.2 K/mm3 (4.4-11.0)
[2024-03-06 11:02] LABS: AST(SGOT) 13 U/L (15-37); Alanine Aminotransfer ALT/SGPT 14 U/L (13-56); Albumin, Serum 3.2 g/dL (3.2-5.0); Alkaline Phosphatase 129 U/L (45-117); Anion Gap 8 (5-15); BUN 14 mg/dL (7-18); BUN/Creat Ratio 16.9 RATIO (10-20); Calcium,Total 8.7 mg/dL (8.5-10.1); Chloride 108 mmol/L (98-107); Cholesterol 222 mg/dL (200); Creatinine, Serum 0.83 mg/dL (0.55-1.02); EST Glomerular Filtration Rate 70 mL/min (>60); Est Glom Filt Rate - Afr Amer 85 mL/min (>60); Globulin 3.3 g/dL (2.2-4.2); Glucose 100 mg/dL (74-106); High Density Lipoprotein 57 mg/dL; Potassium 3.9 mmol/L (3.5-5.1); Protein, Total 6.5 g/dL (6.4-8.2); Sodium Level 141 mmol/L (136-145); Triglycerides 125 mg/dL; Very Low Density Lipoprotein 25 mg/dL (5-40)
[2024-03-06 11:25] LABS: Vitamin D,25 Hydroxy 30.8 ng/mL
[2024-03-06 11:29] LABS: CPK Total, Creatine Kinase 45 U/L (26-192); Troponin-I HS 5 pg/mL (3.0-54.0)
[2024-03-06 12:02] LABS: BNP,B-Type NATRIURETIC PEPTIDE 74.9 pg/mL (0-100)
[2024-03-07 04:07] LABS: Myoglobin, Serum 30 ng/mL (25-58)
== END | disposition home or self-care (01) ==
LOC: POLAB3 09:54
PROVIDERS: PCP Family Medicine Geriatric Medicine; Visit Provider Family Medicine Geriatric Medicine
DX: R06.02 Shortness of breath (principal); R07.9 Chest pain, unspecified; I10 Essential (primary) hypertension; E55.9 Vitamin D deficiency, unspecified; E78.5 Hyperlipidemia, unspecified
CPT/HCPCS: 36415; 80053; 80061; 82306; 82550; 83874; 83880; 84443; 84484; 85025; 85379

== ENCOUNTER → 2024-03-15 | Outpatient (CLI) | payer MEDICARE, SELFPAY ==
--- NOTE | 2024-03-15 07:40 | EKG12_ITS ---
Test Reason : SOB,TIRED,CP Blood Pressure : */* mmHG Vent. Rate : 108 BPM Atrial Rate : 108 BPM P-R Int : 192 ms QRS Dur : 66 ms QT Int : 346 ms P-R-T Axes : 74 2 74 degrees QTcB Int : 463 ms Sinus tachycardia Low voltage QRS Borderline ECG When compared with ECG of 08-Apr-2023 17:13, Nonspecific T wave abnormality now evident in Lateral leads Confirmed by KESHIA MACARIO, ENZO ([id number]), newspaper editor managing KATHLEEN GALARZA ([id number]) on 03/18/2024 2:06:51 PM Referred By: David Wintesr Confirmed By: ENZO SCHMITT MD
== END | disposition home or self-care (01) ==
LOC: PSN 07:37
PROVIDERS: PCP Family Medicine Geriatric Medicine; Referring Provider Family Medicine Geriatric Medicine; Visit Provider Family Medicine Geriatric Medicine
DX: R06.02 Shortness of breath (principal); R07.9 Chest pain, unspecified; R00.0 Tachycardia, unspecified
CPT/HCPCS: 93005; 94060; 94726; 94729

== ENCOUNTER → 2024-03-19 | Outpatient (CLI) | payer MEDICARE, SELFPAY ==
--- NOTE | 2024-03-19 06:52 | ECHOD_ITS ---
Reason For Study: Chest Pain Procedure This was a 2D Doppler, Color Flow transthoracic echocardiogram. Exam performed in department. Left Ventricle Normal LV size. The left ventricular ejection fraction is 65 %. Stage 1 diastolic dysfunction. No regional wall motion abnormalities noted. Right Ventricle Normal right ventricle. Normal systolic function. Atria Normal left atrium. Normal right atrium. Mitral Valve Normal mitral valve. Tricuspid Valve Normal tricuspid valve. Mild tricuspid valve insufficiency. Pulmonary artery systolic pressure is 22 mmHg. Aortic Valve Trisinus/trileaflet aortic valve. Pulmonic Valve Normal pulmonic valve. Great Vessels Normal aortic root. The pulmonary artery is normal size. Inferior vena cava collapse with respiration. Pericardium/Pleural No pericardial effusion. MMode/2D Measurements & Calculations LVIDd: 3.5 cm IVSd: 1.1 cm Ao root diam: 3.2 cm LVIDs: 2.2 cm LVPWd: 0.86 cm RVDd: 2.8 cm FS: 37.9 % LAV(MOD-bp): 50.4 ml LVAd ap4: 21.0 cm2 SV(MOD-sp4): 33.9 ml LAV(MOD-bp) Indexed: 27.4 ml/m2 LVLd ap4: 6.9 cm SI(MOD-sp4): 18.4 ml/m2 LAV(MOD-sp2): 40.5 ml EDV(MOD-sp4): 51.5 ml LAV(MOD-sp4): 62.2 ml EDV(sp4-el): 54.4 ml LVAs ap4: 10.8 cm2 LVLs ap4: 5.5 cm ESV(MOD-sp4): 17.6 ml ESV(sp4-el): 18.2 ml EF(MOD-sp4): 65.8 % EF(sp4-el): 66.5 % SV(sp4-el): 36.2 ml LA A4 area: 20.8 cm2 LA dimension(2D): 3.5 cm RA A4 area: 10.1 cm2 TAPSE: 1.8 cm Time Measurements MV dec time: 0.23 sec Doppler Measurements & Calculations MV E max ezequiel: 69.5 cm/sec Lat Peak E' Ezequiel: 10.2 cm/sec Med Peak E' Ezequiel: 7.1 cm/sec MV A max ezequiel: 86.3 cm/sec E/E' lat: 6.8 E/E' med: 9.8 MV E/A: 0.81 MV V2 max: 117.3 cm/sec MV P1/2t max ezequiel: 90.8 cm/sec Ao V2 max: 123.9 cm/sec MV max P.5 mmHg MV P1/2t: 86.8 msec Ao max P.1 mmHg MV V2 mean: 60.1 cm/sec Ao V2 mean: 89.1 cm/sec MV mean P.7 mmHg MV dec slope: 306.5 cm/sec2 Ao mean P.6 mmHg MV V2 VTI: 28.7 cm MVA(P1/2t): 2.5 cm2 Ao V2 VTI: 30.3 cm AV (velocity ratio): 0.93 LV V1 max: 121.6 cm/sec MR max ezequiel: 493.8 cm/sec PA V2 max: 86.7 cm/sec LV V1 max P.9 mmHg MR max P.5 mmHg PA V2 mean: 64.8 cm/sec LV V1 mean P.5 mmHg LV V1 mean: 88.4 cm/sec LV V1 VTI: 28.1 cm TR max ezequiel: 218.0 cm/sec TR max P.0 mmHg ECHO/Echo Complete Interpretation Summary The left ventricular ejection fraction is 65 %. Normal LV size. Stage 1 diastolic dysfunction. Structurally normal valves. Ordering Physician: David Winters Chi Referring Physician: David Winters Chi Performed By: Rosalio Martin RCS
--- NOTE | 2024-03-20 07:53 | STRESSREP_ITS ---
Stress Test Report Exercise myocardial perfusion stress test. 78-year-old lady with a history of chest pain Stress protocol: Resting EKG demonstrates normal sinus rhythm with a rate of 70 bpm resting blood pressure is 126/80 mmHg. The patient exercised according to the regular Chetan protocol for a total duration of 3 minutes attaining a maximum heart rate of 134 bpm which was 95% of maximum predicted heart rate; the maximum workload was 4.6 metabolic equivalents. At rest there were no ST or T wave changes noted to suggest ischemia and at peak exercise upsloping ST changes only were noted which did not meet the criteria for ischemia. No clinical angina was noted the test was terminated due to the target heart rate being achieved/fatigue. The peak b lood pressure was 174/82 mmHg. Rate-pressure product was 23,300. Myocardial perfusion protocol. 12 point mCi of technetium 99m sestamibi was injected at rest. The patient exercised according to regular Chetan protocol for total duration of 3 minutes and at peak exercise 36 mCi of technetium 99m sestamibi was injected stress images were obtained stress and rest images were reconstructed in comparing the short axis vertical long and horizontal long axis. Gated images were also obtained. Perfusion SPECT analysis: Review of the stress images demonstrate normal uptake of tracer noted in all are as of the myocardium except for small portion of the mid septal wall with reduced perfusion. The resting images similarly demonstrate normal uptake of tracer noted in all areas of the myocardium except for small portion of the mid septal wall with reduced perfusion. No areas of reversibility are noted to suggest ischemia. Gated SPECT analysis: The gated ejection fraction is 89%. Conclusion: Normal exercise myocardial perfusion stress test at a low workload which can affect sensitivity for detection of ischemia Preserved ejection fraction.
== END | disposition home or self-care (01) ==
PROVIDERS: PCP Family Medicine Geriatric Medicine; Referring Provider Family Medicine Geriatric Medicine; Visit Provider Family Medicine Geriatric Medicine
DX: R07.9 Chest pain, unspecified (principal); R06.02 Shortness of breath; R00.0 Tachycardia, unspecified
CPT/HCPCS: 78452; 93017; 93306; A9500; A4216

== ENCOUNTER → 2024-05-20 | Outpatient (CLI) | payer MEDICARE, SELFPAY ==
[2024-05-20 15:50] LABS: Absolute Lymphocyte Count 4.64 X10^3/uL (0.83-4.51); Absolute Neutrophil Count 6.6 X10^3/uL (2.0-7.7); Basophil# 0.05 X10^3/uL; Basophil% 0.4 % (0-1); Eosinophil# 0.29 X10^3/uL; Eosinophils% 2.3 % (0-5); Hematocrit 36.7 % (37-47); Hemoglobin 11.6 g/dL (12.0-15.0); Lymphocyte # 4.64 X10^3/ul (0.83-4.51); Lymphocyte % 37.1 % (19-41); Mean Corp Hgb Conc 31.6 g/dL (32-36); Mean Corpuscular Hgb 26.7 pg (27.0-32.0); Mean Corpuscular Volume 84.4 fL (81-99); Monocyte# 0.91 X10^3/uL; Monocyte% 7.3 % (0-10); NRBC Flagged by Analyzer 0 % (0-5); Neutrophil # 6.58 X10^3/uL (2.7-7.7); Neutrophil % 52.5 % (47-70); Platelet Count 318 K/mm3 (150-450); RBC Distribution Width CV 15.9 % (11.6-14.6); RBC Distribution Width SD 48.5 fl (35.1-43.9); Red Blood Count 4.35 M/mm3 (4.2-5.4); White Blood Count 12.5 K/mm3 (4.4-11.0)
== END | disposition home or self-care (01) ==
PROVIDERS: PCP Family Medicine Geriatric Medicine; Referring Provider Family Medicine Geriatric Medicine; Visit Provider Family Medicine Geriatric Medicine
DX: D50.9 Iron deficiency anemia, unspecified (principal); R68.83 Chills (without fever)
CPT/HCPCS: 36415; 85025; 87631

== ENCOUNTER → 2024-09-13 | Outpatient (CLI) | payer MEDICARE, SELFPAY ==
[2024-09-13 11:41] LABS: Hematocrit 38.1 % (37-47); Hemoglobin 12.1 g/dL (12.0-15.0); Immature Granulocytes Count 0.020 X10^3/uL (0.0-0.0); Mean Corp Hgb Conc 31.8 g/dL (32-36); Mean Corpuscular Volume 90.7 fL (81-99); Mean Platelet Vol. 9.0 fl (6.2-12.0); NRBC Flagged by Analyzer 0 % (0-5); Platelet Count 255 K/mm3 (150-450); RBC Distribution Width CV 14.8 % (11.6-14.6); RBC Distribution Width SD 49.6 fl (35.1-43.9); Red Blood Count 4.20 M/mm3 (4.2-5.4); White Blood Count 6.7 K/mm3 (4.4-11.0)
[2024-09-13 12:33] LABS: AST(SGOT) 20 U/L (<=31); Alanine Aminotransfer ALT/SGPT 13 U/L (<=34); Albumin, Serum 3.9 g/dL (3.4-4.8); Alkaline Phosphatase 110 U/L (35-104); Anion Gap 11 (5-15); BUN 15 mg/dL (4-19); BUN/Creat Ratio 17.4 RATIO (10-20); Calcium,Total 9.2 mg/dL (7.6-11.0); Carbon Dioxide 22.7 mmol/L (21.0-32.0); Chloride 105 mmol/L (98-108); Globulin 2.9 g/dL (2.2-4.2); Glucose 109 mg/dL (70-99); Potassium 4.4 mmol/L (3.3-5.1)
[2024-09-13 12:35] LABS: Vitamin D,25 Hydroxy 20.3 ng/mL (30-100)
== END | disposition home or self-care (01) ==
LOC: LAB 11:29
PROVIDERS: PCP Family Medicine Geriatric Medicine; Referring Provider Family Medicine Geriatric Medicine; Visit Provider Family Medicine Geriatric Medicine
DX: I10 Essential (primary) hypertension (principal); E55.9 Vitamin D deficiency, unspecified
CPT/HCPCS: 36415; 80053; 82306; 84443; 85025

== ENCOUNTER → 2024-10-10 | Outpatient (CLI) | payer MEDICARE, SELFPAY ==
[2024-10-10 15:55] LABS: Mucous, Urine 0 SEEN /hpf (<or=2+)
--- NOTE | 2024-10-10 16:00 | RAD_ITS ---
PROCEDURE: L/S SPINE MIN 4 VIEWS 10/10/2024 REASON FOR EXAM: LOW BACK PAIN TECHNIQUE: L/S SPINE MIN 4 VIEWS FINDINGS: No evidence of acute fracture or dislocation. Mild discogenic degenerative changes of the spine. Moderate lumbar facet arthropathy. Normal alignment. Osseous demineralization. RAD/L/S Spine Min 4 Views IMPRESSION: Spondylosis. Osseous demineralization. Reading Location: [id number]
[2024-10-10 16:33] LABS: Hematocrit 36.7 % (37-47); Hemoglobin 12.0 g/dL (12.0-15.0); Immature Granulocytes Count 0.030 X10^3/uL (0.0-0.0); Mean Corp Hgb Conc 32.7 g/dL (32-36); Mean Corpuscular Volume 89.1 fL (81-99); Mean Platelet Vol. 9.4 fl (6.2-12.0); NRBC Flagged by Analyzer 0 % (0-5); Platelet Count 227 K/mm3 (150-450); RBC Distribution Width CV 14.1 % (11.6-14.6); RBC Distribution Width SD 45.3 fl (35.1-43.9); Red Blood Count 4.12 M/mm3 (4.2-5.4); White Blood Count 8.0 K/mm3 (4.4-11.0)
[2024-10-10 17:04] LABS: Color, Urine Yellow (Yellow); Glucose, Dipstick Normal (Normal); Ketone-Dipstick Negative (Negative); Leukocyte Esterase-Dipstick 500 /ul (Negative); Nitrite-Dipstick Negative (Negative); Occult Blood-Urine 25 /ul (Negative); Protein-Dipstick 15 mg/dl (Negative); Specific Gravity, Urine 1.020 (1.002-1.030); Urine Bilirubin Dipstick Negative (Negative)
[2024-10-10 17:28] LABS: Red Blood Cells-Urine 5-10 SEEN /hpf (0-5)
[2024-10-10 17:29] LABS: Squamous Epithelial Cells - UA 0-5 SEEN /hpf (5-10)
[2024-10-10 18:27] LABS: AST(SGOT) 28 U/L (<=31); Alanine Aminotransfer ALT/SGPT 15 U/L (<=34); Albumin, Serum 4.0 g/dL (3.4-4.8); Alkaline Phosphatase 118 U/L (35-104); Anion Gap 14 (5-15); BUN 11 mg/dL (4-19); BUN/Creat Ratio 13.1 RATIO (10-20); Calcium,Total 9.4 mg/dL (7.6-11.0); Carbon Dioxide 21.4 mmol/L (21.0-32.0); Chloride 101 mmol/L (98-108); Globulin 2.9 g/dL (2.2-4.2); Glucose 107 mg/dL (70-99); Potassium 4.2 mmol/L (3.3-5.1)
[2024-10-11 00:07] LABS: Xtra Tube Kwok EXTRA TUBE
== END | disposition home or self-care (01) ==
PROVIDERS: PCP Family Medicine Geriatric Medicine; Referring Provider Family Medicine Geriatric Medicine; Visit Provider Family Medicine Geriatric Medicine
DX: E86.0 Dehydration (principal); K52.9 Noninfective gastroenteritis and colitis, unspecified; M54.50 Low back pain, unspecified; R63.0 Anorexia; N39.0 Urinary tract infection, site not specified
CPT/HCPCS: 36415; 72110; 80053; 81001; 82274; 83630; 85025; 87070; 87077; 87086; 87088; 87177; 87186; 87205; 87209; 87493

== ENCOUNTER → 2024-10-11 | Outpatient (CLI) | payer MEDICARE, SELFPAY ==
--- NOTE | 2024-10-11 09:56 | CT_ITS ---
PROCEDURE: ABDOMEN/PELVIS WITH CONTRAST 10/11/2024 REASON FOR EXAM: LOW BACK PAIN, APPETITE LOSS,DIARRHEA TECHNIQUE: ABDOMEN/PELVIS WITH CONTRAST Coronal and Sagittal reconstruction series were provided. CONTRAST: Isovue 370 VOLUME: 100 mL One or more dose reduction techniques were used (e.g., Automated exposure control, adjustment of the mA and/or kV according to patient size, use of iterative reconstruction technique. RADIATION DOSE SUMMARY: CTDlvol: 26.09 mGy DLP: 700.08 mGycm COMPARISON: 10/09/2022 FINDINGS: Lung bases: Chronic interstitial changes with large hiatal hernia unchanged from the previous study causing compressive atelectasis in the left lung base. Liver: Normal size. No mass. Gallbladder: Unremarkable Spleen: Normal size. Pancreas: Normal size without evidence of mass surrounding inflammation or ductal dilation. Adrenals: Unremarkable Kidneys: No obstructive uropathy or suspicious solid renal lesion, stable bilateral parapelvic and cortical renal cysts. Bladder: Incompletely distended Reproductive Organs: Likely surgically absent Bowel: Retained stool noted in the majority of the colon. Extensive sigmoid diverticula noted with subtle nonspecific thickening of the sigmoid and a minimal amount of Maki sigmoidal inflammatory stranding suggesting acute uncomplicated diverticulitis is present. No perforation or abscess. An underlying lesion can not be excluded. Small bowel loops fill normally with contrast no evidence of obstruction or acute inflammation Appendix: Not visualized Lymph nodes: no suspicious mesenteric or retroperitoneal lymphadenopathy Vasculature: Peripheral calcifications in the abdominal aorta without aneurysm Peritoneum / Retroperitoneum: No free fluid or air Bones: Bony structures show degenerative change, replaced left hip joint free of complication CT/Abdomen/Pelvis WITH Contrast IMPRESSION: Acute uncomplicated sigmoid diverticulosis, no perforation or abscess, underlyi ng lesion can not be excluded No suspicious solid organ abnormalities No free intraperitoneal fluid, air, or suspicious adenopathy Reading Location: [id number]
== END | disposition home or self-care (01) ==
LOC: CT 09:51
PROVIDERS: PCP Family Medicine Geriatric Medicine; Referring Provider Family Medicine Geriatric Medicine; Visit Provider Family Medicine Geriatric Medicine
DX: M54.50 Low back pain, unspecified (principal); R63.0 Anorexia; R19.7 Diarrhea, unspecified
CPT/HCPCS: 74177; Q9967

== ENCOUNTER → 2024-10-14 | Outpatient (CLI) | payer MEDICARE, SELFPAY ==
[2024-10-14 15:07] LABS: Hematocrit 36.5 % (37-47); Hemoglobin 11.6 g/dL (12.0-15.0); Immature Granulocytes Count 0.040 X10^3/uL (0.0-0.0); Mean Corp Hgb Conc 31.8 g/dL (32-36); Mean Corpuscular Volume 89.2 fL (81-99); Mean Platelet Vol. 9.3 fl (6.2-12.0); NRBC Flagged by Analyzer 0 % (0-5); Platelet Count 258 K/mm3 (150-450); RBC Distribution Width CV 14.1 % (11.6-14.6); RBC Distribution Width SD 46.1 fl (35.1-43.9); Red Blood Count 4.09 M/mm3 (4.2-5.4); White Blood Count 7.5 K/mm3 (4.4-11.0)
== END | disposition home or self-care (01) ==
LOC: POLAB3 14:41
PROVIDERS: PCP Family Medicine Geriatric Medicine; Visit Provider Family Medicine Geriatric Medicine
DX: I10 Essential (primary) hypertension (principal)
CPT/HCPCS: 36415; 85025

== ENCOUNTER → 2025-01-06 | Outpatient (CLI) | payer MEDICARE, SELFPAY | END | disposition home or self-care (01) | LOC: POLAB3 15:55 | PROVIDERS: PCP Family Medicine Geriatric Medicine; Visit Provider Family Medicine Geriatric Medicine | DX: R06.2 Wheezing (principal) | CPT/HCPCS: 87631 ==

== ENCOUNTER → 2025-01-21 | Outpatient (CLI) | payer MEDICARE, SELFPAY ==
[2025-01-21 16:44] LABS: Mucous, Urine 0 SEEN /hpf (<or=2+)
--- NOTE | 2025-01-21 16:54 | RAD_ITS ---
PROCEDURE: L/S SPINE MIN 4 VIEWS 01/21/2025 REASON FOR EXAM: BACK PAIN TECHNIQUE: Procedure Code: RADSPLS Modality: DX Procedure: L/S SPINE MIN 4 VIEWS COMPARISON: None FINDINGS: Lumbar spine four views. Vertebral body height and alignment are grossly maintained. There is degenerative disc disease from T12-L4. There is severe facet sclerosis. Osteopenia is noted. Vascular calcifications are present. Hardware is partly visible in the left hip. RAD/L/S Spine Min 4 Views IMPRESSION: No fracture or spondylolisthesis is identified in the lumbar region. Reading Location: [id number]
--- NOTE | 2025-01-21 16:54 | RAD_ITS ---
PROCEDURE: THORACIC SPINE 3 VIEWS 01/21/2025 REASON FOR EXAM: THORACIC BACK PAIN TECHNIQUE: Procedure Code: RADSPT Modality: DX Procedure: THORACIC SPINE 3 VIEWS COMPARISON: None. FINDINGS: Vertebrae: No acute bony abnormality. Discs: Multilevel degenerative of the cervical spine. Alignment: Normal alignment. RAD/Thoracic Spine 3 Views IMPRESSION: No acute bony abnormalities. Mild multilevel degenerate changes. Reading Location: [id number]
[2025-01-21 16:57] LABS: Hematocrit 36.5 % (37-47); Hemoglobin 11.5 g/dL (12.0-15.0); Immature Granulocytes Count 0.020 X10^3/uL (0.0-0.0); Mean Corp Hgb Conc 31.5 g/dL (32-36); Mean Corpuscular Volume 88.4 fL (81-99); Mean Platelet Vol. 8.8 fl (6.2-12.0); NRBC Flagged by Analyzer 0 % (0-5); Platelet Count 265 K/mm3 (150-450); RBC Distribution Width CV 15.0 % (11.6-14.6); RBC Distribution Width SD 48.3 fl (35.1-43.9); Red Blood Count 4.13 M/mm3 (4.2-5.4); White Blood Count 8.6 K/mm3 (4.4-11.0)
[2025-01-21 17:09] LABS: Color, Urine Yellow (Yellow); Glucose, Dipstick Normal (Normal); Ketone-Dipstick Negative (Negative); Leukocyte Esterase-Dipstick 25 /ul (Negative); Nitrite-Dipstick Negative (Negative); Occult Blood-Urine 10 /ul (Negative); Protein-Dipstick 30 mg/dl (Negative); Specific Gravity, Urine 1.020 (1.002-1.030); Urine Bilirubin Dipstick Negative (Negative)
[2025-01-21 17:22] LABS: Squamous Epithelial Cells - UA 0-5 SEEN /hpf (5-10)
[2025-01-21 17:25] LABS: Red Blood Cells-Urine 0-5 SEEN /hpf (0-5)
[2025-01-21 17:37] LABS: D-Dimer Quantitative (DVT/PE) 0.87 FEU/ug/m (0.27-0.49)
[2025-01-21 17:42] LABS: AST(SGOT) 21 U/L (<=31); Alanine Aminotransfer ALT/SGPT 14 U/L (<=34); Albumin, Serum 3.7 g/dL (3.4-4.8); Alkaline Phosphatase 98 U/L (35-104); Anion Gap 10 (5-15); BUN 20 mg/dL (4-19); BUN/Creat Ratio 22.0 RATIO (10-20); Calcium,Total 9.5 mg/dL (7.6-11.0); Carbon Dioxide 24.5 mmol/L (21.0-32.0); Chloride 103 mmol/L (98-108); Globulin 3.0 g/dL (2.2-4.2); Glucose 111 mg/dL (70-99); Potassium 4.7 mmol/L (3.3-5.1)
[2025-01-22 00:47] LABS: Xtra Tube Kwok EXTRA TUBE
== END | disposition home or self-care (01) ==
LOC: POLAB3 16:41 → RAD 16:53
PROVIDERS: PCP Family Medicine Geriatric Medicine; Referring Provider Family Medicine Geriatric Medicine; Visit Provider Family Medicine Geriatric Medicine
DX: I10 Essential (primary) hypertension (principal); R07.9 Chest pain, unspecified; E86.0 Dehydration; N39.0 Urinary tract infection, site not specified; R06.2 Wheezing; M54.6 Pain in thoracic spine
CPT/HCPCS: 36415; 72072; 72110; 80053; 81001; 85025; 85379; 87086; 87088; 87631

== ENCOUNTER → 2025-01-22 | Outpatient (CLI) | payer MEDICARE, SELFPAY ==
--- NOTE | 2025-01-22 12:37 | CT_ITS ---
PROCEDURE: CTA CHEST W/WO CONTRAST 01/22/2025 REASON FOR EXAM: SOB TECHNIQUE: Procedure Code: [id number] Modality: CT Procedure: CTA CHEST W/WO CONTRAST Multiplanar Sagittal and Coronal images were obtained. CONTRAST: Isovue 370 VOLUME: 102 mL One or more dose reduction techniques were used (e.g., Automated exposure control, adjustment of the mA and/or kV according to patient size, use of iterative reconstruction technique). RADIATION DOSE SUMMARY: CTDlvol: 10.76 mGy DLP: 361.94 mGycm COMPARISON: CTA chest March 06, 2024. # of known CTs in the past 12 months: 2 # of known Cardiac Nuclear Medicine Studies in the past 12 months: 0 FINDINGS: Thoracic Aorta: No aneurysm. No dissection. Heart: No cardiomegaly. Atherosclerotic calcifications of the coronary arteries. Pulmonary Vessels: No pulmonary embolism Hardware: Unremarkable. Lymph nodes: No lymphadenopathy. Lungs and Airways: No free air. No free fluid. Pleura: No pleural effusion or pneumothorax Upper Abdomen: Large hiatal hernia measures 8.5 x 10 x by 10 cm. Bones: No acute bony abnormalities. CT/CTA Chest W/WO Contrast IMPRESSION: No evidence of pulmonary embolism. Large hiatal hernia. Reading Location: [id number]
== END | disposition home or self-care (01) ==
LOC: CT 12:35
PROVIDERS: PCP Family Medicine Geriatric Medicine; Referring Provider Family Medicine Geriatric Medicine; Visit Provider Family Medicine Geriatric Medicine
DX: R06.02 Shortness of breath (principal)
CPT/HCPCS: 71275; Q9967